=== PATIENT | female | born 1935 | race Caucasian/White ===

== ENCOUNTER 2017-10-04 09:47 | Emergency (ER) | payer MEDICARE, BC ==
[2017-10-04] MEDS ORDERED: Acetaminophen 325 MG Tab PO ONE (10:37)
[2017-10-04] MEDS ORDERED: Meclizine 12.5 MG Tab PO ONE (10:37)
[2017-10-04] MEDS ORDERED: Acetaminophen 325 MG Tab ONE (10:44)
--- NOTE | 2017-10-04 12:06 | EDM.PDOC ---
ED HPI GENERAL MEDICAL PROBLEM - General Chief Complaint: Back Pain or Injury Stated Complaint: BACK PAIN-FALL YESTERDAY Time Seen by Provider: 10/04/17 10:27 Source of Information: Reports: Patient, Family, RN Notes Reviewed - History of Present Illness INITIAL COMMENTS - FREE TEXT/NARRATIVE: 82-year-old female who's been brought in by family members after finding her having fallen on the sidewalk or on the ground just outside of her house. She has been developing worsening difficulty with her balance. She cannot really tell me what happened. She did have back pain right after her fall when found by one of her sons. Now here in the ED she does deny discomfort. However family states she is "stubborn" and will not admit she is having pain, does not want to be in hospital or assisted. Apparently her ability to care for herself is declining. She has had frequent falls. She is dizzy, unsteady on her feet. Family states that she have 2 Walker's but she refuses to use one. They state that she still drives her car but they do not feel that she is safe to drive. They have been urging her to leave the farmhouse and to get into some type of assisted living or assisted but she refuses to consider that. Lower Back Pain Score (Numeric/FACES): 2 - Related Data Allergies Allergy/AdvReac Type Severity Reaction Status Date / Time No Known Allergies Allergy Verified 10/04/17 10:02 Home Meds: Home Meds Levothyroxine [Synthroid] 50 mcg PO DAILY 10/04/17 [History] Losartan/Hydrochlorothiazide [Losartan-HCTZ 100-12.5 MG] 12.5 - 100 mg PO DAILY 10/04/17 [History] Past Medical History HEENT History: Reports: Impaired Vision Other HEENT History: wears eyeglasses. 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: Musculoskeletal History: Reports: Fracture Endocrine/Metabolic History: Reports: Hypothyroidism - Infectious Disease History Infectious Disease History: Reports: Chicken Pox, Measles Social & Family History - Tobacco Use Smoking Status *Q: Never Smoker Second Hand Smoke Exposure: No - Caffeine Use Caffeine Use: Reports: None - Recreational Drug Use Recreational Drug Use: No ED ROS GENERAL - Review of Systems Review Of Systems: See Below Constitutional: Denies: Fever, Chills HEENT: Denies: Ear Discharge, Throat Pain Respiratory: Denies: Shortness of Breath, Wheezing, Pleuritic Chest Pain Cardiovascular: Denies: Chest Pain GI/Abdominal: Denies: Abdominal Pain, Nausea, Vomiting Musculoskeletal: Reports: Back Pain (Now better). Denies: Neck Pain, Arm Pain, Leg Pain, Joint Pain Skin: Reports: No Symptoms Neurological: Reports: Dizziness (Patient admits to having difficulty with occasional vertigo,), Difficulty Walking. Denies: Headache, Numbness, Tingling , Trouble Speaking, Weakness, Change in Speech ED EXAM,LOWER BACK PAIN/INJURY - Physical Exam Exam: See Below General Appearance: Alert, No Apparent Distress Eye Exam: Bilateral Eye: PERRL Nose: Normal Inspection Throat/Mouth: Normal Inspection, Normal Oropharynx Head: Atraumatic. No: Facial Swelling Neck: Supple, Non-Tender Respiratory/Chest: No Respiratory Distress, Lungs Clear, Normal Breath Sounds, Chest Non-Tender Cardiovascular: Regular Rate, Rhythm GI/Abdominal: Soft, Non-Tender Back Exam: Normal Inspection, Full Range of Motion Extremities: Other (No visible deformity, mild discomfort with hip motion bilateral). No: Leg Pain Neurological: Alert, No Motor/Sensory Deficits Skin Exam: Warm, Dry, Normal Color Course - Vital Signs Last Recorded V/S: Last Vital Signs Temp 97.3 F 10/04/17 09:50 Pulse 70 10/04/17 09:50 Resp 16 10/04/17 09:50 BP 147/65 H 10/04/17 09:50 Pulse Ox 97 10/04/17 09:50 - Orders/Labs/Meds Orders: Active Orders 24 hr Category Date Time Status Lumbar Spine 2 or 3V [CR] Stat Exams 10/04/17 10:37 Taken Pelvis 1V or 2V [CR] Stat Exams 10/04/17 10:51 Taken Labs: Laboratory Tests 10/04/17 10/04/17 Range/Units 10:45 10:45 WBC 7.36 (3.98-10.04) K/mm3 RBC 4.48 (3.98-5.22) M/mm3 Hgb 13.9 (11.2-15.7) gm/L Hct 41.7 (34.1-44.9) % MCV 93.1 (79.4-94.8) fl MCH 31.0 (25.6-32.2) pg MCHC 33.3 (32.2-35.5) g/dl RDW Std Deviation 42.3 (36.4-46.3) fL Plt Count 256 (182-369) K/mm3 MPV 9.1 L (9.4-12.3) fl Neut % (Auto) 82.0 H (34.0-71.1) % Lymph % (Auto) 10.3 L (19.3-51.7) % [place] % (Auto) 6.1 (4.7-12.5) % Eos % (Auto) 1.1 (0.7-5.8) Baso % (Auto) 0.4 (0.1-1.2) % Neut # (Auto) 6.03 (1.56-6.13) K/mm3 Lymph # (Auto) 0.76 L (1.18-3.74) K/mm3 [place] # (Auto) 0.45 H (0.24-0.36) K/mm3 Eos # (Auto) 0.08 (0.04-0.36) K/mm3 Baso # (Auto) 0.03 (0.01-0.08) K/mm3 Sodium 134 L (136-145) mEq/L Potassium 3.4 L (3.5-5.1) mEq/L Chloride 100 (98-107) mEq/L Carbon Dioxide 28 (21-32) mEq/L Anion Gap 9.4 (5-15) BUN 11 (7-18) mg/dL Creatinine 0.6 (0.55-1.02) mg/dL Est Cr Clr Drug Dosing 60.27 mL/min Estimated GFR (MDRD) > 60 (>60) mL/min BUN/Creatinine Ratio 18.3 H (14-18) Glucose 106 (83-115) mg/dL Calcium 8.9 (8.5-10.1) mg/dL Total Bilirubin 0.5 (0.2-1.0) mg/dL AST 26 (15-37) U/L ALT 26 (14-59) U/L Alkaline Phosphatase 72 (46-116) U/L Total Protein 7.0 (6.4-8.2) g/dl Albumin 3.3 L (3.4-5.0) g/dl Globulin 3.7 gm/dL Albumin/Globulin Ratio 0.9 L (1-2) Meds: Medications Discontinued Medications Generic Name Dose Route Start Last Admin Trade Name Ida PRN Reason Stop Dose Admin Acetaminophen 975 mg 10/04/17 10:37 10/04/17 10:41 Tylenol PO 10/04/17 10:38 975 mg NOW ONE Administration Acetaminophen Confirm 10/04/17 10:44 10/04/17 10:46 Tylenol Administered 10/04/17 10:45 Not Given Dose 975 mg .ROUTE .STK-MED ONE Meclizine HCl 12.5 mg 10/04/17 10:37 10/04/17 10:41 Antivert PO 10/04/17 10:38 12.5 mg ONETIME ONE Administration - Re-Assessments/Exams Free Text/Narrative Re-Assessment/Exam: 10/04/17 13:06 Labs check this morning are normal, the lumbar spine and pelvis do not show visible fracture. Her nurse and I had discussed with family members the great concern for her safety. Or for we have filled out a form our [facility] licensed master social worker to review requesting home evaluation, safety check. Departure - Departure Time of Disposition: 12:03 Disposition: Home, Self-Care 01 Condition: Fair Clinical Impression: Fall Qualifiers: Encounter type: initial encounter Qualified Code(s): W19.XXXA - Unspecified fall, initial encounter Low back strain Qualifiers: Encounter type: initial encounter Qualified Code(s): S39.012A - Strain of muscle, fascia and tendon of lower back, initial encounter - Discharge Information Instructions: Fall Prevention in the Home, [id number], Back Pain, Adult, Easy -to-Read Referrals: Vargas Hassan MD [Primary Care Provider] - Forms: ED Department Discharge Additional Instructions: Use walker for assistance when walking, the next time you fall you could break a hip, arm or have other serious injury. Continue to drink plenty of water to maintain hydration. Tylenol 2-3 times daily if needed for discomfort. Follow- up with your regular medical provider as needed. Turn to ED if symptoms worsening in any way. A request has been filled out for a [facility] licensed master social worker to come out and assess your home and living situation for safety. - My Orders Last 24 Hours: My Active Orders 10/04/17 10:37 Lumbar Spine 2 or 3V [CR] Stat 10/04/17 10:51 Pelvis 1V or 2V [CR] Stat - Assessment/Plan Last 24 Hours: My Active Orders 10/04/17 10:37 Lumbar Spine 2 or 3V [CR] Stat 10/04/17 10:51 Pelvis 1V or 2V [CR] Stat
--- NOTE | 2017-10-05 07:42 | CR ---
Lumbar spine: AP, lateral and coned-down lateral views centered to the lumbosacral junction were obtained. Comparison: Previous lumbar spine x-ray of 07/19/09. Mild spondylolisthesis is noted at L3-L4 and L4-L5. These findings are similar to prior exam. Mild posterior disc space narrowing is noted at L3-L4 with moderate diffuse disc space narrowing noted at L4-L5. Disc space labeled as L5-S1 may be rudimentary and due to transitional segment. Other disc spaces are maintained. Minimal endplate concavity is seen within T11 which appears to be old. Minimal scattered endplate osteophytes are seen. Degenerative apophyseal change is seen within the lower lumbar spine. Pedicles as well as visualized transverse and spinous processes are intact. Impression: 1. Findings as noted above. No significant change from previous lumbar spine study is seen. Nothing acute is identified. Diagnostic code #2
--- NOTE | 2017-10-05 07:42 | CR ---
Pelvis: AP view of the pelvis was obtained. Comparison: Prior AP pelvis study of 07/19/09. Joint spaces within both hips are preserved. Sacroiliac joints appear within normal limits. Bony structures are osteopenic. Mild degenerative change is noted within the lower lumbar spine. Mild vascular calcification is noted. Nothing acute is appreciated. Impression: 1. Incidental findings. Nothing acute is identified on AP pelvis study. Diagnostic code #2
== END 2017-10-04 12:25 | disposition home or self-care (01) ==
LOC: JD.ED 09:47
DX: S39.012A Strain of muscle, fascia and tendon of lower back, initial encounter (principal); I10 Essential (primary) hypertension; E03.9 Hypothyroidism, unspecified; Z79.899 Other long term (current) drug therapy; W19.XXXA Unspecified fall, initial encounter
CPT/HCPCS: 36415; 72100; 72170; 80053; 85025; 99284; A9270

== ENCOUNTER 2018-01-16 05:51 | Emergency (ER) | payer MEDICARE, BC ==
--- NOTE | 2018-01-16 06:37 | EDM.PDOC ---
ED HPI GENERAL MEDICAL PROBLEM - General Chief Complaint: Head Injury Stated Complaint: FELL AT [place] HIT HER HEAD Time Seen by Provider: 01/16/18 06:32 Source of Information: Reports: Family History Limitations: Reports: No Limitations - History of Present Illness INITIAL COMMENTS - FREE TEXT/NARRATIVE: This is an 82-year-old female. She resides a local [facility] and apparently got up this morning to go to the bathroom and fell because she is very weak and she hit the back of her head. The family has come to be with her and they have carried on a good conversation with her and they feel like she is normal. She does have a history of Alzheimer's disease and she really doesn't add to the history but the family feels like she is doing well and does not need a CAT scan of her head. She does have a laceration to the back of her head that requires repair. His far as I'm aware there is no other injury to the patient according to the family. She normally walks with a walker and she is somewhat weak. - Related Data Allergies Allergy/AdvReac Type Severity Reaction Status Date / Time No Known Allergies Allergy Verified 10/04/17 10:02 Home Meds: Home Meds Levothyroxine [Synthroid] 50 mcg PO DAILY 10/04/17 [History] Losartan/Hydrochlorothiazide [Losartan-HCTZ 100-12.5 MG] 12.5 - 100 mg PO DAILY 10/04/17 [History] Past Medical History HEENT History: Reports: Impaired Vision Other HEENT History: wears eyeglasses. 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: Musculoskeletal History: Reports: Fracture Endocrine/Metabolic History: Reports: Hypothyroidism - Infectious Disease History Infectious Disease History: Reports: Chicken Pox, Measles Social & Family History - Caffeine Use Caffeine Use: Reports: None ED ROS GENERAL - Review of Systems Review Of Systems: See Below (The review of systems is from the family not the patient) Constitutional: Denies: Fever, Chills HEENT: Reports: No Symptoms Respiratory: Reports: No Symptoms Cardiovascular: Reports: No Symptoms GI/Abdominal: Denies: Abdominal Pain, Nausea, Vomiting Musculoskeletal: Reports: No Symptoms Skin: Reports: Other (As per history of present illness) Neurological: Reports: Confusion, Trouble Speaking, Difficulty Walking, Weakness Psychiatric: Reports: Other (Flat affect) ED EXAM, HEAD INJURY - Physical Exam Exam: See Below Exam Limited By: Other (Patient has Alzheimer's disease) General Appearance: Alert, No Apparent Distress, Thin Head: Other (Posterior scalp shows a 5 cm laceration that is jagged and stair stepped, the bleeding is controlled) Nexus Criteria: No: Posterior, Midline Cervical Tenderness Eyes: Bilateral Eye: Other (No facial trauma noted) Ears: Normal External Exam, Normal Canal, Normal TMs Nose: Normal Inspection Throat/Mouth: Normal Inspection, Normal Lips, Normal Voice, No Airway Compromise Neck: Normal Alignment, Normal Inspection, Other (Patient is noted to have a goiter) Respiratory: No Respiratory Distress, Lungs Clear, Normal Breath Sounds Cardiovascular: Regular Rate, Rhythm, No Murmur GI/Abdominal Exam: Soft Back Exam: Decreased Range of Motion Extremities: Normal Inspection, Other (Patient was able to be road tested and did bear full weight on her lower extremities) Neurologic: Alert, Other (Patient is noted to have generalized weakness and decreased mental function) Skin: Normal Color - [place] Coma Score Best Eye Response (Deep): (4) Open Spontaneously Best Verbal Response ([place]): (4) Confused Conversation (She has Alzheimer's) Best Motor Response ([place]): (6) Obeys Commands (She obeys simple commands) [place] Total: 14 ED LACERATION/WOUND & MARVA PROC - Laceration/Wound Repair Mid-Posterior Head Lac/wound length in cm: 5 Appearance: Subcutaneous, Irregular, Clean Distal NVT: Neuro & Vascular Intact Anesthetic Type: Digital Local Anesthesia - Lidocaine (Xylocaine): 1% Plain Local Anesthetic Volume: Other (8 CC) Skin Prep: Saline Exploration/Debridement/Repair: Wound Explored Closed with: [place] # of Sutures: 9 Drain Placement: No Sterile Dressing Applied: Nurse Tetanus Status Addressed: No Complications: No Course - Re-Assessments/Exams Free Text/Narrative Re-Assessment/Exam: 01/16/18 06:43 The family was with her and talking to her during the entire examination and the procedure to fix her scalp. I talked to them 3 times making sure the patient was acting normal and they indicate she is markedly normal. I indicated a possible need for a CAT scan of the head and they didn't feel that was necessary at this time. I did give them instructions that if her mental status changes or deteriorates in any need to bring her back to the ER for further evaluation and possible CAT scan. They understand. 01/16/18 06:[address] with her walker she was able to use it without difficulty did not seem to favor the leg or arm and use the walker as she normally does. Departure - Departure Time of Disposition: 06:41 Disposition: DC/Tfer to SNF 03 Condition: Fair Clinical Impression: Scalp laceration Qualifiers: Encounter type: initial encounter Qualified Code(s): S01.01XA - Laceration without foreign body of scalp, initial encounter Contusion of scalp Qualifiers: Encounter type: initial encounter Qualified Code(s): S00.03XA - Contusion of scalp, initial encounter - Discharge Information Referrals: Vargas Hassan MD [Primary Care Provider] - Forms: ED Department Discharge Additional Instructions: Watch for infection such as increased swelling redness or drainage, keep the pressure dressing on there for at least 12 hours then you may take it off and put her in a shower to wash her hair gently, staple removal in 7-10 days and there are 9 chang, follow-up with her physician in 7-10 days or sooner for recheck, if there is any change in her mental status other than her baseline that seems to be worsening return to the ER
== END 2018-01-16 06:56 ==
LOC: JD.ED 05:51
DX: S01.01XA Laceration without foreign body of scalp, initial encounter (principal); I10 Essential (primary) hypertension; E03.9 Hypothyroidism, unspecified; G30.9 Alzheimer's disease, unspecified; F02.80 Dementia in other diseases classified elsewhere, unspecified severity, without behavioral disturbance, psychotic disturbance, mood disturbance, and anxiety; Z79.899 Other long term (current) drug therapy; W19.XXXA Unspecified fall, initial encounter; Y92.121 Bathroom in nursing home as the place of occurrence of the external cause
CPT/HCPCS: 12002; 99283-25

== ENCOUNTER 2018-01-27 21:45 | Inpatient (IN) | payer MEDICARE, BC ==
--- NOTE | 2018-01-27 21:55 | EDM.PDOC ---
ED HPI GENERAL MEDICAL PROBLEM - General Chief Complaint: Head Injury Stated Complaint: FELL AND REOPENED A PREVIOUS HEAD WOUND Time Seen by Provider: 01/27/18 21:54 Source of Information: Reports: Patient, Family (Son & Daughter in law) - History of Present Illness INITIAL COMMENTS - FREE TEXT/NARRATIVE: Patient is here for evaluation of a head injury. She reportedly had 3 falls today, almost a 4th time but she was caught. On the third time she did hit the back of her head. She reopened a laceration where she just had the sutures removed yesterday for a fall that she sustained 11 days ago. She has been under some evaluation by her PCP for these frequent falls. It does not sound that the falls have been witnessed. Patient states that she feels dizzy at times, that the room is spinning. Review of systems is very limited due to patient's Alzheimer's. Family is in the room, states that her mental status is stable from where it has been over the past few weeks. Her Alzheimer has been progressing recently. Patient denies any chest pain or dyspnea. Denies any abdominal pain. Denies any dysuria, does have incontinence and wears attends daily. Patient states she does have lower back/sacral pain from where she landed earlier today. Recently had blood pressure medicine decreased by her PCP. Sertraline was also recently stopped. Patient is not a full code, she is DNR. - Related Data Allergies Allergy/AdvReac Type Severity Reaction Status Date / Time No Known Allergies Allergy Verified 01/27/18 21:58 Home Meds: Home Meds Levothyroxine [Synthroid] 50 mcg PO DAILY 10/04/17 [History] Losartan/Hydrochlorothiazide [Losartan-HCTZ 50-12.5 MG] 1 tab PO DAILY 01/28/18 [History] Past Medical History HEENT History: Reports: Impaired Vision Other HEENT History: wears eyeglasses. 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 Denies : Fever, Chills HEENT: Denies: Ear Pain, Rhinitis, Sinus Problem, Vision Change Respiratory: Reports: No Symptoms Cardiovascular: Reports: Chest Pain, Blood Pressure Problem, Syncope (Possible?) . Denies: Orthopnea Endocrine: Reports: Fatigue GI/Abdominal: Reports: No Symptoms : Reports: Incontinence (Chronic). Denies: Discharge, Dysuria, Flank Pain, Frequency Musculoskeletal: Reports: Back Pain (Lower back/buttucks). Denies: Neck Pain Skin: Reports: Wound (Left scalp) Neurological: Reports: Confusion, Dizziness, Syncope, Difficulty Walking, Gait Disturbance. Denies: Headache, Numbness, Tingling Psychiatric: Reports: Anxiety ED EXAM, HEAD INJURY - Physical Exam Exam: See Below Exam Limited By: Other (Memory impairment) General Appearance: Alert, WD/WN, No Apparent Distress Head: Normocephalic, Scalp Lacerations, Active Bleeding Eyes: Bilateral Eye: PERRL Ears: Hearing Loss (Bilateral hearing aids) Throat/Mouth: Normal Inspection, Normal Oropharynx Neck: Non-Tender, Full Range of Motion, Other (Left-sided goiter) Respiratory: No Respiratory Distress, Lungs Clear, Normal Breath Sounds Cardiovascular: Regular Rate, Rhythm, Systolic Murmur (I/) GI/Abdominal Exam: Normal Bowel Sounds, Soft, Non-Tender Extremities: Normal Inspection Neurologic: No Motor/Sensory Deficits, Other (Flat affect, oriented to person) Skin: Normal Color, Warm/Dry, Other (2 cm laceration to left posterior scalp.) - Randolph Coma Score Best Eye Response (Deep): (4) Open Spontaneously Best Verbal Response (Deep): (4) Confused Conversation (Due to dementia) Best Motor Response (Deep): (6) Obeys Commands Deep Total: 14 EKG INTERPRETATION EKG Date: 01/27/18 Rhythm: NSR Rate (Beats/Min): 68 QT: Prolonged EKG Interpretation Comments: Mild ST elevation, widened QRS. Reviewed with Dr Do Course - Vital Signs Last Recorded V/S: Last Vital Signs Temp 99.1 F 01/28/18 03:55 Pulse 89 01/28/18 07:31 Resp 16 01/28/18 03:55 BP 157/66 H 01/28/18 07:31 Pulse Ox 98 01/28/18 07:31 Orthostatic Blood Pressure [ 186/68 Standing] Orthostatic Blood Pressure [ 184/70 Sitting] Orthostatic Blood Pressure [ 184/62 Supine] - Orders/Labs/Meds Orders: Active Orders 24 hr Category Date Time Status Orthostatic Vital Signs [RC] ASDIRECTED Care 01/27/18 22:14 Active Lumbar Spine 2 or 3V [CR] Stat Exams 01/28/18 08:50 Ordered CULTURE URINE [RM] Stat Lab 01/27/18 22:55 Results Medication Orders Acetaminophen (Tylenol) 650 mg PO Q4H PRN PRN Reason: Pain/Fever Bisacodyl (Dulcolax) 5 mg PO DAILY PRN PRN Reason: Constipation Docusate Sodium (Colace) 100 mg PO BID PRN PRN Reason: Constipation Famotidine (Pepcid) 20 mg IVPUSH BID KARRIE Hydralazine HCl (Apresoline) 20 mg IVPUSH Q6HR PRN PRN Reason: Hypertension Last Admin: 01/28/18 01:40 Dose: 20 mg Hydromorphone HCl (Dilaudid) 0.25 mg IVPUSH Q2H PRN PRN Reason: Pain (severe 7-10) Sodium Chloride (Sodium Chloride 0.45%) 1,000 mls @ 75 mls/hr IV ASDIRECTED [facility] Last Admin: 01/28/18 01:39 Dose: 75 mls/hr Promethazine HCl 6.25 mg/ (Sodium Chloride) 50.25 mls @ 100 mls/hr IV Q6H PRN PRN Reason: Nausea/Vomiting Ceftriaxone Sodium 1 gm/ (Sodium Chloride) 100 mls @ 200 mls/hr IV DAILY [facility] Potassium Chloride 10 meq/ (Premix) 100 mls @ 100 mls/hr IV Q1H [facility] Stop: 01/28/18 13:14 Magnesium Hydroxide (Milk Of Magnesia) 30 ml PO Q12H PRN PRN Reason: Constipation Oxycodone/Acetaminophen (Percocet 325-5 Mg) 0.5 tab PO Q4H PRN PRN Reason: Pain (moderate 4-6) Polyethylene Glycol (Miralax) 17 gm PO DAILY PRN PRN Reason: Constipation Promethazine HCl (Phenergan) 25 mg PO Q6H PRN PRN Reason: Nausea/Vomiting Senna/Docusate Sodium (Senna Plus) 1 tab PO BID PRN PRN Reason: Constipation Sodium Chloride (Saline Flush) 10 ml FLUSH ASDIRECTED PRN PRN Reason: Keep Vein Open Last Admin: 01/28/18 00:15 Dose: 10 ml Temazepam (Restoril) 7.5 mg PO BEDTIME PRN PRN Reason: Insomnia Labs: Laboratory Tests 01/27/18 01/27/18 01/27/18 Range/Units 22:30 22:30 22:55 WBC 6.58 (3.98-10.04) K/mm3 RBC 3.41 L (3.98-5.22) M/mm3 Hgb 10.5 L (11.2-15.7) gm/L Hct 31.3 L (34.1-44.9) % MCV 91.8 (79.4-94.8) fl MCH 30.8 (25.6-32.2) pg MCHC 33.5 (32.2-35.5) g/dl RDW Std Deviation 42.4 (36.4-46.3) fL Plt Count 277 (182-369) K/mm3 MPV 8.6 L (9.4-12.3) fl Neutrophils % (Manual) 77 H (40-60) % Band Neutrophils % 0 (0-10) % Lymphocytes % (Manual) 17 L (20-40) % Atypical Lymphs % 0 % Monocytes % (Manual) 4 (2-10) % Eosinophils % (Manual) 1 (0.7-5.8) % Basophils % (Manual) 1 (0.1-1.2) Platelet Estimate Adequate Plt Morphology Comment Normal RBC Morph Comment Normal Sodium 130 L (136-145) mEq/L Potassium 3.1 L (3.5-5.1) mEq/L Chloride 95 L (98-107) mEq/L Carbon Dioxide 25 (21-32) mEq/L Anion Gap 13.1 (5-15) BUN 10 (7-18) mg/dL Creatinine 0.6 (0.55-1.02) mg/dL Est Cr Clr Drug Dosing 60.27 mL/min Estimated GFR (MDRD) > 60 (>60) mL/min BUN/Creatinine Ratio 16.7 (14-18) Glucose 110 (83-115) mg/dL Calcium 8.9 (8.5-10.1) mg/dL Total Bilirubin 0.6 (0.2-1.0) mg/dL AST 22 (15-37) U/L ALT 21 (14-59) U/L Alkaline Phosphatase 77 (46-116) U/L Troponin I < 0.017 (0.00-0.056) ng/mL C-Reactive Protein < 0.2 (<1.0) mg/dL Total Protein 6.5 (6.4-8.2) g/dl Albumin 3.4 (3.4-5.0) g/dl Globulin 3.1 gm/dL Albumin/Globulin Ratio 1.1 (1-2) TSH 3rd Generation 2.373 (0.358-3.74) uIU/mL Urine Color Yellow (Yellow) Urine Appearance Slt cloudy H (Clear) Urine pH 6.5 (5.0-8.0) Ur Specific [place] 1.020 (1.005-1.030) Urine Protein Negative (Negative) Urine Glucose (UA) Negative (Negative) Urine Ketones Negative (Negative) Urine Occult Blood Negative (Negative) Urine Nitrite Positive H (Negative) Urine Bilirubin Negative (Negative) Urine Urobilinogen 0.2 (0.2-1.0) Ur Leukocyte Esterase Trace H (Negative) Urine RBC Not seen (0-5) /hpf Urine WBC 5-10 H (0-5) /hpf Urine WBC Clumps Few (NOT SEEN) /hpf Ur Epithelial Cells 0-5 (0-5) /hpf Urine Bacteria Many H (FEW) /hpf Urine Mucus Few (FEW) /hpf Meds: Medications Generic Name Dose Route Start Last Admin Trade Name Freq PRN Reason Stop Dose Admin Acetaminophen 650 mg 01/28/18 01:27 Tylenol PO Q4H PRN Pain/Fever Bisacodyl 5 mg 01/28/18 08:38 Dulcolax PO DAILY PRN Constipation Docusate Sodium 100 mg 01/28/18 08:38 Colace PO BID PRN Constipation Famotidine 20 mg 01/28/18 09:00 Pepcid IVPUSH BID KARRIE Hydralazine HCl 20 mg 01/28/18 01:23 01/28/18 01:40 Apresoline IVPUSH 20 mg Q6HR PRN Administration Hypertension Hydromorphone HCl 0.25 mg 01/28/18 08:38 Dilaudid IVPUSH Q2H PRN Pain (severe 7-10) Sodium Chloride 1,000 mls @ 75 mls/hr 01/28/18 01:30 01/28/18 01:39 Sodium Chloride 0.45% IV 75 mls/hr ASDIRECTED KARRIE Administration Promethazine HCl 6.25 mg/ 50.25 mls @ 100 mls/hr 01/28/18 08:38 Sodium Chloride IV Q6H PRN Nausea/Vomiting Ceftriaxone Sodium 1 gm/ 100 mls @ 200 mls/hr 01/28/18 09:00 Sodium Chloride IV DAILY KARRIE Potassium Chloride 10 meq/ 100 mls @ 100 mls/hr 01/28/18 09:15 Premix IV 01/28/18 13:14 Q1H KARRIE Magnesium Hydroxide 30 ml 01/28/18 08:38 Milk Of Magnesia PO Q12H PRN Constipation Oxycodone/Acetaminophen 0.5 tab 01/28/18 08:38 Percocet 325-5 Mg PO Q4H PRN Pain (moderate 4-6) Polyethylene Glycol 17 gm 01/28/18 08:38 Miralax PO DAILY PRN Constipation Promethazine HCl 25 mg 01/28/18 08:38 Phenergan PO Q6H PRN Nausea/Vomiting Senna/Docusate Sodium 1 tab 01/28/18 08:38 Senna Plus PO BID PRN Constipation Sodium Chloride 10 ml 01/28/18 00:02 01/28/18 00:15 Saline Flush FLUSH 10 ml ASDIRECTED PRN Administration Keep Vein Open Temazepam 7.5 mg 01/28/18 01:27 Restoril PO BEDTIME PRN Insomnia Discontinued Medications Generic Name Dose Route Start Last Admin Trade Name Freq PRN Reason Stop Dose Admin Acetaminophen 650 mg 01/28/18 08:38 Tylenol PO Q4H PRN Pain (Mild 1-3)/fever Ceftriaxone Sodium 1 gm 01/28/18 08:45 Rocephin IVPUSH 01/28/18 08:46 ONETIME ONE Ceftriaxone Sodium 1 gm/ 100 mls @ 200 mls/hr 01/28/18 09:00 Sodium Chloride IV DAILY KARRIE Lidocaine/Epinephrine 20 ml 01/27/18 23:00 01/27/18 23:09 Xylocaine 1% With Epinephrine 1:100,000 INJECT 01/27/18 23:01 20 ml ONETIME ONE Administration - Re-Assessments/Exams Free Text/Narrative Re-Assessment/Exam: Review of systems and neurologic exam very limited due to patient's dementia. Patient's family states her dementia has progressed, but her behavior and speech this evening is typical for her. With increased frequency and falls, patient's family requesting more thorough workup tonight (had been their choice to decline at last visit, have been working with PCP as well). Will get lab work, EKG, head CT. Urinalysis by catheter. It has been 12 days since patient's initial laceration to her scalp, however with re-injury today I do feel that this needs to be repaired. 01/27/18 22:29 Attempted to staple head laceration, however with the hematoma the skin is just too soft for this. Pressure dressing will be applied and this will have to heal on its own. Wound was examined by Dr Do as well who agrees with plan. 01/27/18 23:51 Patient has had some lower back/sacrum pain since her fall. X-ray of this has been ordered. This may end up being performed once patient is admitted as there are other situations currently in the department requiring radiology services. Head CT demonstrates 1.8 cm right frontoparietal extra-axial fluid collection of CSF likely consistent with a subdural hygroma. No other intracranial processes appreciated. She does have a left occipital cephalehematoma. Discussed possible consult with neurology/neurosurgery for this with patient's son and [id number], I see that she would not want this. They have no desire to treat this invasively and would not consider surgery or possible shunt. May consider outpatient consult the future but they do not want to do this right now. Patient has white blood cell count of 6,580, hemoglobin is 10.5 which is reportedly higher than it has been. Sodium is decreased at 130 and potassium is low at 3.1. She is on HCTZ, also her sertraline was just stopped and could have been contributing. CRP <0.2. Urinalysis demonstrates nitrates with a trace of leukocyte esterase. Do not feel that this is treatable infection, culture is pending. orthostatic blood pressures are unremarkable. Blood pressure remains elevated, however prior to decreasing her medication was significantly lower and this was suspected to be contributing to her falls. Her blood pressure this morning on her decreased dose of medication was 128/66. -Difficult to clarify with memory care facility on what her previous dosing was , current dosing of medication is losartan/hydrochlorothiazide 50 mg/12.5 mg daily. Will not currently treat patient with hypertension, discussed with hospitalist and she will monitor. Patient's case was discussed with the hospitalist. Will admit patient for head injury, altered mental status and memory loss, hypokalemia, hyponatremia and frequent falls. She will likely need social work consult and possible admission to group home and said of the [facility] care facility in which she resides. Patient is DNR/DNI. 01/27/18 23:52 Received clarification of medications from patient's memory care facility. Her meclizine and sertraline were stopped approximately 10 days ago. Losartan/ hydrochlorothiazide 100/12.5 mg daily was decreased to 50\12.5 mg daily. 01/28/18 00:06 Departure - Departure Time of Disposition: 00:05 Disposition: Admitted As Inpatient 64 Condition: Fair Clinical Impression: Laceration of head, Frequent falls, Hyponatremia, Hypokalemia Altered mental status Qualifiers: Altered mental status type: unspecified Qualified Code(s): R41.82 - Altered mental status, unspecified Dementia Qualifiers: Dementia type: Alzheimer's disease Alzheimer's disease onset: unspecified onset Dementia behavioral disturbance: without behavioral disturbance Qualified Code(s): G30.9 - Alzheimer's disease, unspecified Hypertension Qualifiers: Hypertension type: essential hypertension Qualified Code(s): I10 - Essential ( primary) hypertension Scalp laceration Qualifiers: Encounter type: initial encounter Qualified Code(s): S01.01XA - Laceration without foreign body of scalp, initial encounter - Discharge Information - My Orders Last 24 Hours: My Active Orders 01/27/18 22:14 Orthostatic Vital Signs [RC] ASDIRECTED 01/27/18 22:55 CULTURE URINE [RM] Stat 01/28/18 08:50 Lumbar Spine 2 or 3V [CR] Stat - Assessment/Plan Last 24 Hours: My Active Orders 01/27/18 22:14 Orthostatic Vital Signs [RC] ASDIRECTED 01/27/18 22:55 CULTURE URINE [RM] Stat 01/28/18 08:50 Lumbar Spine 2 or 3V [CR] Stat
[2018-01-27] MEDS ORDERED: Lidocaine 1% with EPINEPHrine 1:100,000 20 ML MDV INJECT ONE (23:00)
[2018-01-28] MEDS: Sodium Chloride 0.9% 10 ML Syringe FLUSH PRN (00:15)
[2018-01-28] MEDS ORDERED: Temazepam 7.5 MG Cap PO PRN (01:27)
[2018-01-28] MEDS: Sodium Chloride 0.45% 1,000 ML IV SCH ×2 (01:39→15:11)
[2018-01-28] MEDS: hydrALAZINE 20 MG/ML SDV IVPUSH PRN (01:40)
--- NOTE | 2018-01-28 06:56 | CT ---
Head CT Technique: Multiple axial sections through the brain were obtained. Intravenous contrast was not utilized. Comparison: No prior head CT exam, previous MRI brain dated 01/15/10. Findings: Ventricles along with basal cisterns and sulci over the convexities are mildly prominent. Increased extra-axial space is identified on the right side which is felt compatible with old subdural hygroma. Diminished density is noted within the periventricular and subcortical white matter compatible with small vessel ischemic demyelination change. No evidence of intracranial hemorrhage. Slight midline shift by about 3.6 mm is seen secondary to the chronic right subdural hygroma. Bone window settings were reviewed which show no acute calvarial abnormality. Large hematoma is seen within the left scalp. Impression: 1. Large scalp hematoma on the left side. 2. Chronic subdural hygroma on the right side causing mild midline shift of about 3.6 mm. 3. Other senescent change as noted above. No acute intracranial abnormality is seen. Diagnostic code #3 Agree with preliminary report issued by [facility] ([facility] preliminary report dictated on 01/27/18, 11:57 PM Central Time)
[2018-01-28] MEDS ORDERED: Acetaminophen/oxyCODONE 325-5 MG Tab PO PRN (08:38)
[2018-01-28] MEDS ORDERED: Promethazine 6.25 MG in Sodium Chloride 0.9% 50 ML IV PRN (08:38)
[2018-01-28] MEDS ORDERED: Bisacodyl 5 MG Tab PO PRN (08:38)
[2018-01-28] MEDS ORDERED: HYDROmorphone 0.5 MG/0.5 ML SYRINGE IVPUSH PRN (08:38)
[2018-01-28] MEDS ORDERED: Promethazine 25 MG Tab PO PRN (08:38)
[2018-01-28] MEDS ORDERED: Docusate Sodium 100 MG Cap PO PRN (08:38)
[2018-01-28] MEDS ORDERED: Acetaminophen 325 MG Tab PO PRN (08:38)
[2018-01-28] MEDS ORDERED: Magnesium Hydroxide 400 MG/5 ML Susp 30 ML Cup PO PRN (08:38)
[2018-01-28] MEDS ORDERED: Polyethylene Glycol 3350 Powder 17 GM Packet PO PRN (08:38)
[2018-01-28] MEDS ORDERED: cefTRIAXone 2 GM Vial IVPUSH ONE (08:45)
[2018-01-28] MEDS ORDERED: cefTRIAXone 1 GM in Sodium Chloride 0.9% 100 ML IV SCH ×4 (09:00)
[2018-01-28] MEDS ORDERED: Famotidine 20 MG/2 ML SDV IVPUSH SCH (09:00)
--- NOTE | 2018-01-28 09:34 | PCM.HP ---
<Delisa Phillips - Last Filed: 01/28/18 14:10> H&P History of Present Illness - General Date of Service: 01/28/18 Admit Problem/Dx: Admission Diagnosis/Problem Admission Diagnosis/Problem Falls Source of Information: Family, Old Records, Provider History Limitations: Reports: Altered Mental Status (h/o dementia) - History of Present Illness Initial Comments - Free Text/Narative: This is a 82 yo female with past medical hx/o HTN, hyperthyroid, Alzheimer's, h/ o fall 11 days ago with laceration repair who comes in for head injury with re- opening of previous laceration with fall. She currently has pain in her lower back/buttocks area after the fall. Difficult to get history due to Alzheimer's, but she complains of chest pain, weakness, fatigue, difficulty walking, decreased appetite, incontinence. She reports no fever, chills, headache, nausea , vomiting, diarrhea, shortness of breath, or other GI/ complaints. Her initial workup in the ED showed a CBC remarkable for RBC 3.41, Hgb 10.5, Hct 31.3. Her chemistry is remarkable for Na 130, K 3.1, Cl 95. UA is impressive for UTI. EKG showed mild ST elevation, prolonged QRS. Head CT demonstrates 1.8 cm right frontoparietal extra-axial fluid collection of CSF likely consistent with a subdural hygroma and left occipital cephalehematoma. She is subsequently admitted to the medical floor. She is a DNR/DNI. Her PCP is Dr. Vargas Hassan. - Related Data Allergies/Adverse Reactions: Allergies Allergy/AdvReac Type Severity Reaction Status Date / Time No Known Allergies Allergy Verified 01/27/18 21:58 Home Medications: Home Meds Levothyroxine [Synthroid] 50 mcg PO DAILY 10/04/17 [History] Calcium Carbonate 600 mg PO BIDMEALS 01/28/18 [History] Losartan/Hydrochlorothiazide [Losartan-HCTZ 50-12.5 MG] 1 tab PO DAILY 01/28/18 [History] Naproxen Sodium 220 mg PO Q12H PRN 01/28/18 [History] Past Medical History HEENT History: Reports: Hard of Hearing, Impaired Vision Other HEENT History: wears eyeglasses. 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: Musculoskeletal History: Reports: Fracture Neurological History: Reports: Vertigo, Other (See Below) Other Neuro History: dementia Psychiatric History: Reports: Dementia, Depression Endocrine/Metabolic History: Reports: Hypothyroidism Dermatologic History: Reports: Other (See Below) Other Dermatologic History: allergic reactions to different soaps, dermatitis - Infectious Disease History Infectious Disease History: Reports: None - Past Surgical History HEENT Surgical History: Reports: None Cardiovascular Surgical History: Reports: None Endocrine Surgical History: Reports: None Neurological Surgical History: Reports: None Musculoskeletal Surgical History: Reports: Other (See Below) Other Musculoskeletal Surgeries/Procedures:: wrist fracture left with cast placement x3 Social & Family History - Family History Family Medical History: Noncontributory - Tobacco Use Smoking Status *Q: Never Smoker Second Hand Smoke Exposure: No - Caffeine Use Caffeine Use: Reports: None - Recreational Drug Use Recreational Drug Use: No H&P Review of Systems - Review of Systems: Review Of Systems: See Below General: Reports: Malaise, Weakness, Fatigue, Decreased Appetite. Denies: Fever , Chills HEENT: Reports: No Symptoms Pulmonary: Reports: No Symptoms Cardiovascular: Reports: Chest Pain, Syncope (possible), Blood Pressure Problem. Denies: Dyspnea on Exertion, Orthopnea, Edema Gastrointestinal: Reports: No Symptoms Genitourinary: Reports: Incontinence. Denies: Dysuria, Frequency, Burning, Pain Musculoskeletal: Reports: Back Pain (Lower back/buttucks). Denies: Neck Pain Skin: Reports: Wound (Left scalp) Psychiatric: Reports: Confusion Neurological: Reports: Confusion, Dizziness, Syncope, Difficulty Walking, Gait Disturbance. Denies: Headache, Numbness, Tingling Hematologic/Lymphatic: Reports: No Symptoms. Denies: Anemia Immunologic: Reports: No Symptoms Exam - Exam Exam: See Below - Vital Signs Vital Signs: Last Vital Signs Temp 99.1 F 01/28/18 03:55 Pulse 89 01/28/18 07:31 Resp 16 01/28/18 03:55 BP 157/66 H 01/28/18 07:31 Pulse Ox 98 01/28/18 07:31 Orthostatic Blood Pressure [ 186/68 Standing] Orthostatic Blood Pressure [ 184/70 Sitting] Orthostatic Blood Pressure [ 184/62 Supine] Weight: 56.926 kg - Exam Quality Assessment: DVT Prophylaxis. No: Urinary Catheter General: Alert, Oriented (oriented to person only), Cooperative, Mild Distress HEENT: PERRLA, Hearing Intact, Mucosa Moist & [place], Nares Patent, Normal Nasal Septum, Posterior Pharynx Clear, Conjunctiva Clear, EOMI, EACs Clear, TMs Clear Neck: Supple, Trachea Midline, Full Range of Motion, Other (Left-sided goiter) Lungs: Clear to Auscultation, Normal Respiratory Effort Cardiovascular: Regular Rate, Regular Rhythm, Systolic Murmur (I/) GI/Abdominal Exam: Normal Bowel Sounds, Soft, Non-Tender, No Organomegaly, No Distention, No Abnormal Bruit, No Mass, Pelvis Stable (Female) Exam: Deferred Rectal (Female) Exam: Deferred Back Exam: Normal Inspection, Decreased Range of Motion, Other (TTP Lower back/ buttucks area) Extremities: Normal Inspection, Normal Range of Motion, Non-Tender, No Pedal Edema, Normal Capillary Refill Peripheral Pulses: 1+: Posterior Tibial (L), Posterior Tibial (R), Dorsalis Pedis (L), Dorsalis Pedis (R) Skin: Warm, Dry, Intact, Wound (2 cm laceration to left posterior scalp) Neurological: Cranial Nerves Intact (grossly), Abnormal Gait Neuro Extensive - Mental Status: Alert, Disorientation to Place, Disorientation to Time, Other (Flat affect, oriented to person) Psychiatric: Alert, Other (Flat affect) - Patient Data Lab Results Last 24 hrs: Laboratory Results - last 24 hr 01/27/18 01/27/18 01/27/18 Range/Units 22:30 22:30 22:55 WBC 6.58 (3.98-10.04) K/mm3 RBC 3.41 L (3.98-5.22) M/mm3 Hgb 10.5 L (11.2-15.7) gm/L Hct 31.3 L (34.1-44.9) % MCV 91.8 (79.4-94.8) fl MCH 30.8 (25.6-32.2) pg MCHC 33.5 (32.2-35.5) g/dl RDW Std Deviation 42.4 (36.4-46.3) fL Plt Count 277 (182-369) K/mm3 MPV 8.6 L (9.4-12.3) fl Neut % (Auto) (34.0-71.1) % Lymph % (Auto) (19.3-51.7) % [place] % (Auto) (4.7-12.5) % Eos % (Auto) (0.7-5.8) Baso % (Auto) (0.1-1.2) % Neut # (Auto) (1.56-6.13) K/mm3 Lymph # (Auto) (1.18-3.74) K/mm3 [place] # (Auto) (0.24-0.36) K/mm3 Eos # (Auto) (0.04-0.36) K/mm3 Baso # (Auto) (0.01-0.08) K/mm3 Neutrophils % (Manual) 77 H (40-60) % Band Neutrophils % 0 (0-10) % Lymphocytes % (Manual) 17 L (20-40) % Atypical Lymphs % 0 % Monocytes % (Manual) 4 (2-10) % Eosinophils % (Manual) 1 (0.7-5.8) % Basophils % (Manual) 1 (0.1-1.2) Platelet Estimate Adequate Plt Morphology Comment Normal RBC Morph Comment Normal Sodium 130 L (136-145) mEq/L Potassium 3.1 L (3.5-5.1) mEq/L Chloride 95 L (98-107) mEq/L Carbon Dioxide 25 (21-32) mEq/L Anion Gap 13.1 (5-15) BUN 10 (7-18) mg/dL Creatinine 0.6 (0.55-1.02) mg/dL Est Cr Clr Drug Dosing 60.27 mL/min Estimated GFR (MDRD) > 60 (>60) mL/min BUN/Creatinine Ratio 16.7 (14-18) Glucose 110 (83-115) mg/dL Calcium 8.9 (8.5-10.1) mg/dL Magnesium (1.8-2.4) mg/dl Total Bilirubin 0.6 (0.2-1.0) mg/dL AST 22 (15-37) U/L ALT 21 (14-59) U/L Alkaline Phosphatase 77 (46-116) U/L Troponin I < 0.017 (0.00-0.056) ng/mL C-Reactive Protein < 0.2 (<1.0) mg/dL NT-Pro-B Natriuret Pep (0-450) pg/mL Total Protein 6.5 (6.4-8.2) g/dl Albumin 3.4 (3.4-5.0) g/dl Globulin 3.1 gm/dL Albumin/Globulin Ratio 1.1 (1-2) TSH 3rd Generation 2.373 (0.358-3.74) uIU/mL Urine Color Yellow (Yellow) Urine Appearance Slt cloudy H (Clear) Urine pH 6.5 (5.0-8.0) Ur Specific [place] 1.020 (1.005-1.030) Urine Protein Negative (Negative) Urine Glucose (UA) Negative (Negative) Urine Ketones Negative (Negative) Urine Occult Blood Negative (Negative) Urine Nitrite Positive H (Negative) Urine Bilirubin Negative (Negative) Urine Urobilinogen 0.2 (0.2-1.0) Ur Leukocyte Esterase Trace H (Negative) Urine RBC Not seen (0-5) /hpf Urine WBC 5-10 H (0-5) /hpf Urine WBC Clumps Few (NOT SEEN) /hpf Ur Epithelial Cells 0-5 (0-5) /hpf Urine Bacteria Many H (FEW) /hpf Urine Mucus Few (FEW) /hpf MRSA (PCR) 01/28/18 01/28/18 01/28/18 Range/Units 01:48 06:15 06:15 WBC (3.98-10.04) K/mm3 RBC (3.98-5.22) M/mm3 Hgb (11.2-15.7) gm/L Hct (34.1-44.9) % MCV (79.4-94.8) fl MCH (25.6-32.2) pg MCHC (32.2-35.5) g/dl RDW Std Deviation (36.4-46.3) fL Plt Count (182-369) K/mm3 MPV (9.4-12.3) fl Neut % (Auto) (34.0-71.1) % Lymph % (Auto) (19.3-51.7) % [place] % (Auto) (4.7-12.5) % Eos % (Auto) (0.7-5.8) Baso % (Auto) (0.1-1.2) % Neut # (Auto) (1.56-6.13) K/mm3 Lymph # (Auto) (1.18-3.74) K/mm3 [place] # (Auto) (0.24-0.36) K/mm3 Eos # (Auto) (0.04-0.36) K/mm3 Baso # (Auto) (0.01-0.08) K/mm3 Neutrophils % (Manual) (40-60) % Band Neutrophils % (0-10) % Lymphocytes % (Manual) (20-40) % Atypical Lymphs % % Monocytes % (Manual) (2-10) % Eosinophils % (Manual) (0.7-5.8) % Basophils % (Manual) (0.1-1.2) Platelet Estimate Plt Morphology Comment RBC Morph Comment Sodium 130 L (136-145) mEq/L Potassium 3.2 L (3.5-5.1) mEq/L Chloride 95 L (98-107) mEq/L Carbon Dioxide 25 (21-32) mEq/L Anion Gap 13.2 (5-15) BUN 7 (7-18) mg/dL Creatinine 0.6 (0.55-1.02) mg/dL Est Cr Clr Drug Dosing 60.27 mL/min Estimated GFR (MDRD) > 60 (>60) mL/min BUN/Creatinine Ratio 11.7 L (14-18) Glucose 110 (83-115) mg/dL Calcium 8.8 (8.5-10.1) mg/dL Magnesium 2.0 (1.8-2.4) mg/dl Total Bilirubin (0.2-1.0) mg/dL AST (15-37) U/L ALT (14-59) U/L Alkaline Phosphatase (46-116) U/L Troponin I 0.036 (0.00-0.056) ng/mL C-Reactive Protein (<1.0) mg/dL NT-Pro-B Natriuret Pep 1247 H (0-450) pg/mL Total Protein (6.4-8.2) g/dl Albumin (3.4-5.0) g/dl Globulin gm/dL Albumin/Globulin Ratio (1-2) TSH 3rd Generation (0.358-3.74) uIU/mL Urine Color (Yellow) Urine Appearance (Clear) Urine pH (5.0-8.0) Ur Specific [place] (1.005-1.030) Urine Protein (Negative) Urine Glucose (UA) (Negative) Urine Ketones (Negative) Urine Occult Blood (Negative) Urine Nitrite (Negative) Urine Bilirubin (Negative) Urine Urobilinogen (0.2-1.0) Ur Leukocyte Esterase (Negative) Urine RBC (0-5) /hpf Urine WBC (0-5) /hpf Urine WBC Clumps (NOT SEEN) /hpf Ur Epithelial Cells (0-5) /hpf Urine Bacteria (FEW) /hpf Urine Mucus (FEW) /hpf MRSA (PCR) Negative 01/28/18 Range/Units 06:15 WBC 7.00 (3.98-10.04) K/mm3 RBC 3.84 L (3.98-5.22) M/mm3 Hgb 11.7 (11.2-15.7) gm/L Hct 34.8 (34.1-44.9) % MCV 90.6 (79.4-94.8) fl MCH 30.5 (25.6-32.2) pg MCHC 33.6 (32.2-35.5) g/dl RDW Std Deviation 43.1 (36.4-46.3) fL Plt Count 320 (182-369) K/mm3 MPV 8.7 L (9.4-12.3) fl Neut % (Auto) 72.1 H (34.0-71.1) % Lymph % (Auto) 16.3 L (19.3-51.7) % [place] % (Auto) 9.6 (4.7-12.5) % Eos % (Auto) 1.3 (0.7-5.8) Baso % (Auto) 0.6 (0.1-1.2) % Neut # (Auto) 5.05 (1.56-6.13) K/mm3 Lymph # (Auto) 1.14 L (1.18-3.74) K/mm3 [place] # (Auto) 0.67 H (0.24-0.36) K/mm3 Eos # (Auto) 0.09 (0.04-0.36) K/mm3 Baso # (Auto) 0.04 (0.01-0.08) K/mm3 Neutrophils % (Manual) (40-60) % Band Neutrophils % (0-10) % Lymphocytes % (Manual) (20-40) % Atypical Lymphs % % Monocytes % (Manual) (2-10) % Eosinophils % (Manual) (0.7-5.8) % Basophils % (Manual) (0.1-1.2) Platelet Estimate Plt Morphology Comment RBC Morph Comment Sodium (136-145) mEq/L Potassium (3.5-5.1) mEq/L Chloride (98-107) mEq/L Carbon Dioxide (21-32) mEq/L Anion Gap (5-15) BUN (7-18) mg/dL Creatinine (0.55-1.02) mg/dL Est Cr Clr Drug Dosing mL/min Estimated GFR (MDRD) (>60) mL/min BUN/Creatinine Ratio (14-18) Glucose (83-115) mg/dL Calcium (8.5-10.1) mg/dL Magnesium (1.8-2.4) mg/dl Total Bilirubin (0.2-1.0) mg/dL AST (15-37) U/L ALT (14-59) U/L Alkaline Phosphatase (46-116) U/L Troponin I (0.00-0.056) ng/mL C-Reactive Protein (<1.0) mg/dL NT-Pro-B Natriuret Pep (0-450) pg/mL Total Protein (6.4-8.2) g/dl Albumin (3.4-5.0) g/dl Globulin gm/dL Albumin/Globulin Ratio (1-2) TSH 3rd Generation (0.358-3.74) uIU/mL Urine Color (Yellow) Urine Appearance (Clear) Urine pH (5.0-8.0) Ur Specific [place] (1.005-1.030) Urine Protein (Negative) Urine Glucose (UA) (Negative) Urine Ketones (Negative) Urine Occult Blood (Negative) Urine Nitrite (Negative) Urine Bilirubin (Negative) Urine Urobilinogen (0.2-1.0) Ur Leukocyte Esterase (Negative) Urine RBC (0-5) /hpf Urine WBC (0-5) /hpf Urine WBC Clumps (NOT SEEN) /hpf Ur Epithelial Cells (0-5) /hpf Urine Bacteria (FEW) /hpf Urine Mucus (FEW) /hpf MRSA (PCR) Result Diagrams: 01/28/18 06:15 01/28/18 06:15 Steve Results Last 24 hrs: Microbiology 01/27/18 22:55 Urine Culture - Preliminary Urine, Catheterized Gram Negative Rods - Problem List (1) Altered mental status SNOMED Code(s): 079359091 ICD Code: R41.82 - ALTERED MENTAL STATUS, UNSPECIFIED Status: Chronic Priority: Medium Current Visit: Yes Qualifiers: Altered mental status type: unspecified Qualified Code(s): R41.82 - Altered mental status, unspecified (2) Dementia SNOMED Code(s): 40133570 ICD Code: F03.90 - UNSPECIFIED DEMENTIA WITHOUT BEHAVIORAL DISTURBANCE Status: Chronic Priority: Medium Current Visit: Yes Qualifiers: Dementia type: Alzheimer's disease Alzheimer's disease onset: unspecified onset Dementia behavioral disturbance: without behavioral disturbance Qualified Code(s): G30.9 - Alzheimer's disease, unspecified; F02.80 - Dementia in other diseases classified elsewhere without behavioral disturbance (3) Frequent falls SNOMED Code(s): 008225794 ICD Code: R29.6 - REPEATED FALLS Status: Acute Priority: High Current Visit: Yes (4) Hypertension SNOMED Code(s): 43789866 ICD Code: I10 - ESSENTIAL (PRIMARY) HYPERTENSION Status: Chronic Priority : Medium Current Visit: Yes Qualifiers: Hypertension type: essential hypertension Qualified Code(s): I10 - Essential (primary) hypertension (5) Hypokalemia SNOMED Code(s): 17460062 ICD Code: E87.6 - HYPOKALEMIA Status: Acute Priority: High Current Visit: Yes (6) Hyponatremia SNOMED Code(s): 73458764 ICD Code: E87.1 - HYPO-OSMOLALITY AND HYPONATREMIA Status: Acute Priority : High Current Visit: Yes (7) Scalp laceration SNOMED Code(s): 607019779 ICD Code: S01.01XA - LACERATION WITHOUT FOREIGN BODY OF SCALP, INITIAL ENCOUNTER Status: Acute Priority: High Current Visit: Yes Qualifiers: Encounter type: subsequent encounter Qualified Code(s): S01.01XD - Laceration without foreign body of scalp, subsequent encounter (8) Contusion of scalp SNOMED Code(s): 86930471 ICD Code: S00.03XA - CONTUSION OF SCALP, INITIAL ENCOUNTER Status: Acute Priority: High Current Visit: Yes Qualifiers: Encounter type: initial encounter Qualified Code(s): S00.03XA - Contusion of scalp, initial encounter (9) Fall SNOMED Code(s): 8102189, 831736729 ICD Code: W19.XXXA - UNSPECIFIED FALL, INITIAL ENCOUNTER Status: Acute Priority: High Current Visit: Yes Qualifiers: Encounter type: initial encounter Qualified Code(s): W19.XXXA - Unspecified fall, initial encounter (10) Low back strain SNOMED Code(s): 260870613 ICD Code: S39.012A - STRAIN OF MUSCLE, FASCIA AND TENDON OF LOWER BACK, INIT Status: Acute Priority: High Current Visit: Yes Qualifiers: Encounter type: initial encounter Qualified Code(s): S39.012A - Strain of muscle, fascia and tendon of lower back, initial encounter (11) UTI (urinary tract infection) SNOMED Code(s): 28062351 ICD Code: N39.0 - URINARY TRACT INFECTION, SITE NOT SPECIFIED Status: Acute Priority: High Current Visit: Yes Qualifiers: Urinary tract infection type: acute cystitis Hematuria presence: without hematuria Qualified Code(s): N30.00 - Acute cystitis without hematuria (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 SNOMED Code(s): 260834187 ICD Code: E07.1 - DYSHORMOGENETIC GOITER Status: Chronic Priority: Low Current Visit: Yes (13) Elevated brain natriuretic peptide (BNP) level SNOMED Code(s): 307867237, 826877996 ICD Code: R79.89 - OTHER SPECIFIED ABNORMAL FINDINGS OF BLOOD CHEMISTRY Status: Acute Priority: High Current Visit: Yes Problem List Initiated/Reviewed/Updated: Yes Orders Last 24hrs: Active Orders 24 hr Category Date Time Status Patient Status [ADT] Routine ADT 01/28/18 00:02 Active Activity as Tolerated [RC] .Routine Care 01/28/18 01:26 Active Bedrest Bathroom Privileges [RC] ASDIRECTED Care 01/28/18 08:38 Active Bedrest Bedside Commode [RC] ASDIRECTED Care 01/28/18 08:38 Active Cardiac Monitoring [RC] INTERMITTENT Care 01/28/18 08:39 Active Height and Weight [RC] DAILY Care 01/28/18 08:38 Active Intake and Output [RC] QSHIFT Care 01/28/18 08:39 Active May Shower [RC] ASDIRECTED Care 01/28/18 08:38 Active Orthostatic Vital Signs [RC] ASDIRECTED Care 01/27/18 22:14 Active Oxygen Therapy [RC] PRN Care 01/28/18 08:38 Active Pulse Oximetry [RC] PRN Care 01/28/18 08:39 Active Up With Assistance [RC] ASDIRECTED Care 01/28/18 08:38 Active Up to Chair [RC] ASDIRECTED Care 01/28/18 08:38 Active VTE/DVT Education [RC] PER UNIT ROUTINE Care 01/28/18 08:38 Active Vital Signs [RC] Q4H Care 01/28/18 08:38 Active Wound Care [RC] DAILY Care 01/28/18 09:06 Ordered Consult to Case Management [CONS] Routine Cons 01/28/18 01:25 Active Consult to Occupational Therapy [OT Evaluation and Cons 01/28/18 01:26 Active Treatment] [CONS] Routine Consult to Physical Therapy [PT Evaluation and Cons 01/28/18 01:25 Active Treatment] [CONS] Routine Consult to Restaurant Lead [CONS] Routine Cons 01/28/18 01:25 Active POOL HALL INSPECTOR Evaluation and Treatment [CONS] Routine Cons 01/28/18 08:38 Active Clear Liquid Diet [DIET] Diet 01/28/18 Breakfast Active Echo Comp wo Cont [US] Routine Exams 01/28/18 08:00 Ordered Lumbar Spine 2 or 3V [CR] Stat Exams 01/28/18 08:50 Ordered BASIC METABOLIC PANEL,BMP [CHEM] AM Lab 01/29/18 05:11 Ordered BASIC METABOLIC PANEL,BMP [CHEM] AM Lab 01/30/18 05:11 Ordered BASIC METABOLIC PANEL,BMP [CHEM] AM Lab 01/31/18 05:11 Ordered BASIC METABOLIC PANEL,BMP [CHEM] AM Lab 02/01/18 05:11 Ordered BASIC METABOLIC PANEL,BMP [CHEM] AM Lab 02/02/18 05:11 Ordered CBC WITH AUTO DIFF [HEME] AM Lab 01/29/18 05:11 Ordered CBC WITH AUTO DIFF [HEME] AM Lab 01/30/18 05:11 Ordered CBC WITH AUTO DIFF [HEME] AM Lab 01/31/18 05:11 Ordered CBC WITH AUTO DIFF [HEME] AM Lab 02/01/18 05:11 Ordered CBC WITH AUTO DIFF [HEME] AM Lab 02/02/18 05:11 Ordered CULTURE URINE [RM] Stat Lab 01/27/18 22:55 Results MAGNESIUM [CHEM] AM Lab 01/29/18 05:11 Ordered MAGNESIUM [CHEM] AM Lab 01/30/18 05:11 Ordered MAGNESIUM [CHEM] AM Lab 01/31/18 05:11 Ordered MAGNESIUM [CHEM] AM Lab 02/01/18 05:11 Ordered MAGNESIUM [CHEM] AM Lab 02/02/18 05:11 Ordered METH-RESIST S.AUR,MRSA BY PCR [MOLEC] Routine Lab 01/28/18 01:48 Ordered PRO B-TYPE NATRIUR PEPT,BNPPRO [CHEM] DAILY Lab 01/29/18 09:00 Ordered PRO B-TYPE NATRIUR PEPT,BNPPRO [CHEM] DAILY Lab 01/30/18 09:00 Ordered PRO B-TYPE NATRIUR PEPT,BNPPRO [CHEM] DAILY Lab 01/31/18 09:00 Ordered PRO B-TYPE NATRIUR PEPT,BNPPRO [CHEM] DAILY Lab 02/01/18 09:00 Ordered PRO B-TYPE NATRIUR PEPT,BNPPRO [CHEM] DAILY Lab 02/02/18 09:00 Ordered Acetaminophen [Tylenol] Med 01/28/18 01:27 Active 650 mg PO Q4H PRN Acetaminophen/oxyCODONE [Percocet 325-5 MG] Med 01/28/18 08:38 Active 0.5 tab PO Q4H PRN Bisacodyl [Dulcolax] Med 01/28/18 08:38 Active 5 mg PO DAILY PRN Docusate Sodium [Colace] Med 01/28/18 08:38 Active 100 mg PO BID PRN Docusate Sodium/Sennosides [Senna Plus] Med 01/28/18 08:38 Active 1 tab PO BID PRN Famotidine [Pepcid] Med 01/28/18 09:00 Active 20 mg IVPUSH BID HYDROmorphone [Dilaudid] Med 01/28/18 08:38 Ordered 0.25 mg IVPUSH Q2H PRN Magnesium Hydroxide [Milk of Magnesia] Med 01/28/18 08:38 Ordered 30 ml PO Q12H PRN Polyethylene Glycol 3350 [MiraLAX] Med 01/28/18 08:38 Ordered 17 gm PO DAILY PRN Potassium Chloride [KCl 10 MEQ in Water 100 ML] 10 meq Med 01/28/18 09:15 Ordered Premix Bag 1 bag IV Q1H Promethazine [Phenergan] Med 01/28/18 08:38 Ordered 25 mg PO Q6H PRN Promethazine [Phenergan] 6.25 mg Med 01/28/18 08:38 Ordered Sodium Chloride 0.9% [Normal Saline] 50 ml IV Q6H Sodium Chloride 0.45% 1,000 ml Med 01/28/18 01:30 Active IV ASDIRECTED Sodium Chloride 0.9% [Saline Flush] Med 01/28/18 00:02 Active 10 ml FLUSH ASDIRECTED PRN Temazepam [Restoril] Med 01/28/18 01:27 Active 7.5 mg PO BEDTIME PRN cefTRIAXone [Rocephin] 1 gm Med 01/28/18 09:00 Active Sodium Chloride 0.9% [Normal Saline] 100 ml IV DAILY hydrALAZINE [Apresoline] Med 01/28/18 01:23 Active 20 mg IVPUSH Q6HR PRN Saline Lock Insert [OM.PC] Routine Oth 01/28/18 00:02 Ordered YAKELIN Hose [Antiembolic Hose] [OM.PC] Routine Oth 01/28/18 01:24 Ordered Resuscitation Status Routine Resus Stat 01/28/18 08:38 Ordered Medication Orders Acetaminophen (Tylenol) 650 mg PO Q4H PRN PRN Reason: Pain/Fever Bisacodyl (Dulcolax) 5 mg PO DAILY PRN PRN Reason: Constipation Docusate Sodium (Colace) 100 mg PO BID PRN PRN Reason: Constipation Famotidine (Pepcid) 20 mg IVPUSH BID KARRIE Hydralazine HCl (Apresoline) 20 mg IVPUSH Q6HR PRN PRN Reason: Hypertension Last Admin: 01/28/18 01:40 Dose: 20 mg Hydromorphone HCl (Dilaudid) 0.25 mg IVPUSH Q2H PRN PRN Reason: Pain (severe 7-10) Sodium Chloride (Sodium Chloride 0.45%) 1,000 mls @ 75 mls/hr IV ASDIRECTED KARRIE Last Admin: 01/28/18 01:39 Dose: 75 mls/hr Promethazine HCl 6.25 mg/ (Sodium Chloride) 50.25 mls @ 100 mls/hr IV Q6H PRN PRN Reason: Nausea/Vomiting Ceftriaxone Sodium 1 gm/ (Sodium Chloride) 100 mls @ 200 mls/hr IV DAILY KARRIE Potassium Chloride 10 meq/ (Premix) 100 mls @ 100 mls/hr IV Q1H KARRIE Stop: 01/28/18 13:14 Magnesium Hydroxide (Milk Of Magnesia) 30 ml PO Q12H PRN PRN Reason: Constipation Oxycodone/Acetaminophen (Percocet 325-5 Mg) 0.5 tab PO Q4H PRN PRN Reason: Pain (moderate 4-6) Polyethylene Glycol (Miralax) 17 gm PO DAILY PRN PRN Reason: Constipation Promethazine HCl (Phenergan) 25 mg PO Q6H PRN PRN Reason: Nausea/Vomiting Senna/Docusate Sodium (Senna Plus) 1 tab PO BID PRN PRN Reason: Constipation Sodium Chloride (Saline Flush) 10 ml FLUSH ASDIRECTED PRN PRN Reason: Keep Vein Open Last Admin: 01/28/18 00:15 Dose: 10 ml Temazepam (Restoril) 7.5 mg PO BEDTIME PRN PRN Reason: Insomnia Assessment/Plan Comment:: I/P: Acute: Fall -Risk Factors: h/o Alzheimer's, AMS, Fatigue, Weakness, Decreased appetite -H/o frequent falls; last visit 11 days ago -Feels dizziness and feels the "room spinning" at times -BP 138/61; Orthostatics normal in ED -No anemia via labs -Vestibular assessment ordered -PT/OT consult Scalp Laceration/Contusion -Fell 11 days ago and had laceration to scalp -Recent fall caused re-opening of wound -Unable to staple in ED -Pressure dressing and wound care Lower Back Pain -2/2 Fall -Lumbar Xray in ED--> Severe compression deformity of L3, mild compression deformities T11 and T12 -Consult with ortho Dr. Enriquez UTI -Risk factor: h/o of Incontinence -No clinical symptoms -U/A in ED--> Positive Nitrite, Leukocyte Esterase, Many Bacteria -Urine culture--> Gram negative rods -IV Rocephin 1g x3-5 days Altered Mental Status -Risk Factors: h/o Dementia, acute UTI, Decreased appetite, Fall with head injury -Oriented only to person and birthdate -Head CT in ED--> 1.8 cm subdural hygroma and left occipital cephalehematoma -Recommend outpt neurology consult -CM/SW consult for SNF placement Decreased Appetite -Risk factors: Confusion/Dementia -[employer] consult ordered to r/o difficulty swallowing -Clear liquid diet -Advance diet as tolerated -Per family she is able to eat whole foods, will advance for dinner Electrolyte Abnormalities -Most likely 2/2 decreased intake -Hypokalemia 3.2 and Hyponatremia 130 -IV NS -Monitor and supplement as needed Elevated BNP -No h/o heart failure, no pedal edema -Presented with Chest Pain in ED -BNP 1247 -EKG--> mild ST elevation, prolonged QRS -Troponin negative -ECHO ordered--> pending results -Monitor Chronic: HTN Hypothyroidism with Goiter--> TSH normal range Alzheimer's Disease Frequent [place] Plan: Transferred to Med-Surg today She remains stable and continues to improve clinically Other orders as indicated above CM/SW for discharge planning--> Most likely D/C to [facility] Routine AM labs PT/OT DVT Prophylaxis: YAKELIN [facility] Prophylaxis: Pepcid Ambulated with assistance Code Status: DNR/DNI; PCP: Dr. Vargas Hassan <Jena Salazar - Last Filed: 01/28/18 19:35> H&P History of Present Illness - General Admit Problem/Dx: Admission Diagnosis/Problem Admission Diagnosis/Problem Falls Exam - Vital Signs Vital Signs: Last Vital Signs Temp 37.0 C 01/28/18 17:19 Pulse 79 01/28/18 17:19 Resp 18 01/28/18 17:19 BP 120/92 H 01/28/18 17:19 Pulse Ox 98 01/28/18 17:19 Orthostatic Blood Pressure [ 186/68 Standing] Orthostatic Blood Pressure [ 184/70 Sitting] Orthostatic Blood Pressure [ 184/62 Supine] - Patient Data Lab Results Last 24 hrs: Laboratory Results - last 24 hr 01/27/18 01/27/18 01/27/18 Range/Units 22:30 22:30 22:55 WBC 6.58 (3.98-10.04) K/mm3 RBC 3.41 L (3.98-5.22) M/mm3 Hgb 10.5 L (11.2-15.7) gm/L Hct 31.3 L (34.1-44.9) % MCV 91.8 (79.4-94.8) fl MCH 30.8 (25.6-32.2) pg MCHC 33.5 (32.2-35.5) g/dl RDW Std Deviation 42.4 (36.4-46.3) fL Plt Count 277 (182-369) K/mm3 MPV 8.6 L (9.4-12.3) fl Neut % (Auto) (34.0-71.1) % Lymph % (Auto) (19.3-51.7) % [place] % (Auto) (4.7-12.5) % Eos % (Auto) (0.7-5.8) Baso % (Auto) (0.1-1.2) % Neut # (Auto) (1.56-6.13) K/mm3 Lymph # (Auto) (1.18-3.74) K/mm3 [place] # (Auto) (0.24-0.36) K/mm3 Eos # (Auto) (0.04-0.36) K/mm3 Baso # (Auto) (0.01-0.08) K/mm3 Neutrophils % (Manual) 77 H (40-60) % Band Neutrophils % 0 (0-10) % Lymphocytes % (Manual) 17 L (20-40) % Atypical Lymphs % 0 % Monocytes % (Manual) 4 (2-10) % Eosinophils % (Manual) 1 (0.7-5.8) % Basophils % (Manual) 1 (0.1-1.2) Platelet Estimate Adequate Plt Morphology Comment Normal RBC Morph Comment Normal Sodium 130 L (136-145) mEq/L Potassium 3.1 L (3.5-5.1) mEq/L Chloride 95 L (98-107) mEq/L Carbon Dioxide 25 (21-32) mEq/L Anion Gap 13.1 (5-15) BUN 10 (7-18) mg/dL Creatinine 0.6 (0.55-1.02) mg/dL Est Cr Clr Drug Dosing 60.27 mL/min Estimated GFR (MDRD) > 60 (>60) mL/min BUN/Creatinine Ratio 16.7 (14-18) Glucose 110 (83-115) mg/dL Calcium 8.9 (8.5-10.1) mg/dL Magnesium (1.8-2.4) mg/dl Total Bilirubin 0.6 (0.2-1.0) mg/dL AST 22 (15-37) U/L ALT 21 (14-59) U/L Alkaline Phosphatase 77 (46-116) U/L Troponin I < 0.017 (0.00-0.056) ng/mL C-Reactive Protein < 0.2 (<1.0) mg/dL NT-Pro-B Natriuret Pep (0-450) pg/mL Total Protein 6.5 (6.4-8.2) g/dl Albumin 3.4 (3.4-5.0) g/dl Globulin 3.1 gm/dL Albumin/Globulin Ratio 1.1 (1-2) Free T4 (0.76-1.46) ng/dL TSH 3rd Generation 2.373 (0.358-3.74) uIU/mL Urine Color Yellow (Yellow) Urine Appearance Slt cloudy H (Clear) Urine pH 6.5 (5.0-8.0) Ur Specific [place] 1.020 (1.005-1.030) Urine Protein Negative (Negative) Urine Glucose (UA) Negative (Negative) Urine Ketones Negative (Negative) Urine Occult Blood Negative (Negative) Urine Nitrite Positive H (Negative) Urine Bilirubin Negative (Negative) Urine Urobilinogen 0.2 (0.2-1.0) Ur Leukocyte Esterase Trace H (Negative) Urine RBC Not seen (0-5) /hpf Urine WBC 5-10 H (0-5) /hpf Urine WBC Clumps Few (NOT SEEN) /hpf Ur Epithelial Cells 0-5 (0-5) /hpf Urine Bacteria Many H (FEW) /hpf Urine Mucus Few (FEW) /hpf MRSA (PCR) 01/28/18 01/28/18 01/28/18 Range/Units 01:48 06:15 06:15 WBC (3.98-10.04) K/mm3 RBC (3.98-5.22) M/mm3 Hgb (11.2-15.7) gm/L Hct (34.1-44.9) % MCV (79.4-94.8) fl MCH (25.6-32.2) pg MCHC (32.2-35.5) g/dl RDW Std Deviation (36.4-46.3) fL Plt Count (182-369) K/mm3 MPV (9.4-12.3) fl Neut % (Auto) (34.0-71.1) % Lymph % (Auto) (19.3-51.7) % [place] % (Auto) (4.7-12.5) % Eos % (Auto) (0.7-5.8) Baso % (Auto) (0.1-1.2) % Neut # (Auto) (1.56-6.13) K/mm3 Lymph # (Auto) (1.18-3.74) K/mm3 [place] # (Auto) (0.24-0.36) K/mm3 Eos # (Auto) (0.04-0.36) K/mm3 Baso # (Auto) (0.01-0.08) K/mm3 Neutrophils % (Manual) (40-60) % Band Neutrophils % (0-10) % Lymphocytes % (Manual) (20-40) % Atypical Lymphs % % Monocytes % (Manual) (2-10) % Eosinophils % (Manual) (0.7-5.8) % Basophils % (Manual) (0.1-1.2) Platelet Estimate Plt Morphology Comment RBC Morph Comment Sodium 130 L (136-145) mEq/L Potassium 3.2 L (3.5-5.1) mEq/L Chloride 95 L (98-107) mEq/L Carbon Dioxide 25 (21-32) mEq/L Anion Gap 13.2 (5-15) BUN 7 (7-18) mg/dL Creatinine 0.6 (0.55-1.02) mg/dL Est Cr Clr Drug Dosing 60.27 mL/min Estimated GFR (MDRD) > 60 (>60) mL/min BUN/Creatinine Ratio 11.7 L (14-18) Glucose 110 (83-115) mg/dL Calcium 8.8 (8.5-10.1) mg/dL Magnesium 2.0 (1.8-2.4) mg/dl Total Bilirubin (0.2-1.0) mg/dL AST (15-37) U/L ALT (14-59) U/L Alkaline Phosphatase (46-116) U/L Troponin I 0.036 (0.00-0.056) ng/mL C-Reactive Protein (<1.0) mg/dL NT-Pro-B Natriuret Pep 1247 H (0-450) pg/mL Total Protein (6.4-8.2) g/dl Albumin (3.4-5.0) g/dl Globulin gm/dL Albumin/Globulin Ratio (1-2) Free T4 (0.76-1.46) ng/dL TSH 3rd Generation (0.358-3.74) uIU/mL Urine Color (Yellow) Urine Appearance (Clear) Urine pH (5.0-8.0) Ur Specific [place] (1.005-1.030) Urine Protein (Negative) Urine Glucose (UA) (Negative) Urine Ketones (Negative) Urine Occult Blood (Negative) Urine Nitrite (Negative) Urine Bilirubin (Negative) Urine Urobilinogen (0.2-1.0) Ur Leukocyte Esterase (Negative) Urine RBC (0-5) /hpf Urine WBC (0-5) /hpf Urine WBC Clumps (NOT SEEN) /hpf Ur Epithelial Cells (0-5) /hpf Urine Bacteria (FEW) /hpf Urine Mucus (FEW) /hpf MRSA (PCR) Negative 01/28/18 01/28/18 Range/Units 06:15 06:15 WBC 7.00 (3.98-10.04) K/mm3 RBC 3.84 L (3.98-5.22) M/mm3 Hgb 11.7 (11.2-15.7) gm/L Hct 34.8 (34.1-44.9) % MCV 90.6 (79.4-94.8) fl MCH 30.5 (25.6-32.2) pg MCHC 33.6 (32.2-35.5) g/dl RDW Std Deviation 43.1 (36.4-46.3) fL Plt Count 320 (182-369) K/mm3 MPV 8.7 L (9.4-12.3) fl Neut % (Auto) 72.1 H (34.0-71.1) % Lymph % (Auto) 16.3 L (19.3-51.7) % [place] % (Auto) 9.6 (4.7-12.5) % Eos % (Auto) 1.3 (0.7-5.8) Baso % (Auto) 0.6 (0.1-1.2) % Neut # (Auto) 5.05 (1.56-6.13) K/mm3 Lymph # (Auto) 1.14 L (1.18-3.74) K/mm3 [place] # (Auto) 0.67 H (0.24-0.36) K/mm3 Eos # (Auto) 0.09 (0.04-0.36) K/mm3 Baso # (Auto) 0.04 (0.01-0.08) K/mm3 Neutrophils % (Manual) (40-60) % Band Neutrophils % (0-10) % Lymphocytes % (Manual) (20-40) % Atypical Lymphs % % Monocytes % (Manual) (2-10) % Eosinophils % (Manual) (0.7-5.8) % Basophils % (Manual) (0.1-1.2) Platelet Estimate Plt Morphology Comment RBC Morph Comment Sodium (136-145) mEq/L Potassium (3.5-5.1) mEq/L Chloride (98-107) mEq/L Carbon Dioxide (21-32) mEq/L Anion Gap (5-15) BUN (7-18) mg/dL Creatinine (0.55-1.02) mg/dL Est Cr Clr Drug Dosing mL/min Estimated GFR (MDRD) (>60) mL/min BUN/Creatinine Ratio (14-18) Glucose (83-115) mg/dL Calcium (8.5-10.1) mg/dL Magnesium (1.8-2.4) mg/dl Total Bilirubin (0.2-1.0) mg/dL AST (15-37) U/L ALT (14-59) U/L Alkaline Phosphatase (46-116) U/L Troponin I (0.00-0.056) ng/mL C-Reactive Protein (<1.0) mg/dL NT-Pro-B Natriuret Pep (0-450) pg/mL Total Protein (6.4-8.2) g/dl Albumin (3.4-5.0) g/dl Globulin gm/dL Albumin/Globulin Ratio (1-2) Free T4 1.10 (0.76-1.46) ng/dL TSH 3rd Generation (0.358-3.74) uIU/mL Urine Color (Yellow) Urine Appearance (Clear) Urine pH (5.0-8.0) Ur Specific [place] (1.005-1.030) Urine Protein (Negative) Urine Glucose (UA) (Negative) Urine Ketones (Negative) Urine Occult Blood (Negative) Urine Nitrite (Negative) Urine Bilirubin (Negative) Urine Urobilinogen (0.2-1.0) Ur Leukocyte Esterase (Negative) Urine RBC (0-5) /hpf Urine WBC (0-5) /hpf Urine WBC Clumps (NOT SEEN) /hpf Ur Epithelial Cells (0-5) /hpf Urine Bacteria (FEW) /hpf Urine Mucus (FEW) /hpf MRSA (PCR) Result Diagrams: 01/28/18 06:15 01/28/18 06:15 Steve Results Last 24 hrs: Microbiology 01/27/18 22:55 Urine Culture - Preliminary Urine, Catheterized Gram Negative Rods Orders Last 24hrs: Active Orders 24 hr Category Date Time Status Patient Status [ADT] Routine ADT 01/28/18 11:17 Active Activity as Tolerated [RC] .Routine Care 01/28/18 01:26 Active Bedrest Bathroom Privileges [RC] ASDIRECTED Care 01/28/18 08:38 Inactive Bedrest Bedside Commode [RC] ASDIRECTED Care 01/28/18 08:38 Inactive Cardiac Monitoring [RC] INTERMITTENT Care 01/28/18 08:39 Active Height and Weight [RC] 0400 Care 01/28/18 08:38 Active Intake and Output [RC] 04,16 Care 01/28/18 08:39 Active May Shower [RC] ASDIRECTED Care 01/28/18 08:38 Active Notify Provider Consults [RC] ASDIRECTED Care 01/28/18 13:09 Active Orthostatic Vital Signs [RC] ASDIRECTED Care 01/27/18 22:14 Active Oxygen Therapy [RC] PRN Care 01/28/18 08:38 Active Pulse Oximetry [RC] PRN Care 01/28/18 08:39 Active Up With Assistance [RC] ASDIRECTED Care 01/28/18 08:38 Active Up to Chair [RC] ASDIRECTED Care 01/28/18 08:38 Active VTE/DVT Education [RC] PER UNIT ROUTINE Care 01/28/18 08:38 Active Vital Signs [RC] Q4H Care 01/28/18 08:38 Active Wound Care [RC] DAILY Care 01/28/18 09:06 Active Consult to Case Management [CONS] Routine Cons 01/28/18 01:25 Active Consult to Occupational Therapy [OT Evaluation and Cons 01/28/18 01:26 Active Treatment] [CONS] Routine Consult to Physical Therapy [PT Evaluation and Cons 01/28/18 01:25 Active Treatment] [CONS] Routine Consult to Physician [CONS] Routine Cons 01/28/18 13:05 Active Consult to Restaurant Lead [CONS] Routine Cons 01/28/18 01:25 Active PT Evaluation and Treatment [CONS] Routine Cons 01/28/18 12:30 Active [employer]OR Evaluation and Treatment [CONS] Routine Cons 01/28/18 08:38 Active Regular Diet [DIET] Diet 01/28/18 Dinner Active BASIC METABOLIC PANEL,BMP [CHEM] AM Lab 01/29/18 05:11 Ordered BASIC METABOLIC PANEL,BMP [CHEM] AM Lab 01/30/18 05:11 Ordered BASIC METABOLIC PANEL,BMP [CHEM] AM Lab 01/31/18 05:11 Ordered BASIC METABOLIC PANEL,BMP [CHEM] AM Lab 02/01/18 05:11 Ordered BASIC METABOLIC PANEL,BMP [CHEM] AM Lab 02/02/18 05:11 Ordered CBC WITH AUTO DIFF [HEME] AM Lab 01/29/18 05:11 Ordered CBC WITH AUTO DIFF [HEME] AM Lab 01/30/18 05:11 Ordered CBC WITH AUTO DIFF [HEME] AM Lab 01/31/18 05:11 Ordered CBC WITH AUTO DIFF [HEME] AM Lab 02/01/18 05:11 Ordered CBC WITH AUTO DIFF [HEME] AM Lab 02/02/18 05:11 Ordered CULTURE URINE [RM] Stat Lab 01/27/18 22:55 Results MAGNESIUM [CHEM] AM Lab 01/29/18 05:11 Ordered MAGNESIUM [CHEM] AM Lab 01/30/18 05:11 Ordered MAGNESIUM [CHEM] AM Lab 01/31/18 05:11 Ordered MAGNESIUM [CHEM] AM Lab 02/01/18 05:11 Ordered MAGNESIUM [CHEM] AM Lab 02/02/18 05:11 Ordered METH-RESIST S.AUR,MRSA BY PCR [MOLEC] Routine Lab 01/28/18 01:48 Ordered PRO B-TYPE NATRIUR PEPT,BNPPRO [CHEM] DAILY Lab 01/29/18 09:00 Ordered PRO B-TYPE NATRIUR PEPT,BNPPRO [CHEM] DAILY Lab 01/30/18 09:00 Ordered PRO B-TYPE NATRIUR PEPT,BNPPRO [CHEM] DAILY Lab 01/31/18 09:00 Ordered PRO B-TYPE NATRIUR PEPT,BNPPRO [CHEM] DAILY Lab 02/01/18 09:00 Ordered PRO B-TYPE NATRIUR PEPT,BNPPRO [CHEM] DAILY Lab 02/02/18 09:00 Ordered Acetaminophen [Tylenol] Med 01/28/18 01:27 Active 650 mg PO Q4H PRN Acetaminophen/oxyCODONE [Percocet 325-5 MG] Med 01/28/18 08:38 Active 0.5 tab PO Q4H PRN Bisacodyl [Dulcolax] Med 01/28/18 08:38 Active 5 mg PO DAILY PRN Docusate Sodium [Colace] Med 01/28/18 08:38 Active 100 mg PO BID PRN Docusate Sodium/Sennosides [Senna Plus] Med 01/28/18 08:38 Active 1 tab PO BID PRN Famotidine [Pepcid] Med 01/28/18 11:14 Active 20 mg PO BID HYDROmorphone [Dilaudid] Med 01/28/18 08:38 Active 0.25 mg IVPUSH Q2H PRN Hydrochlorothiazide Med 01/28/18 11:30 Active 12.5 mg PO DAILY Levothyroxine [Synthroid] Med 01/28/18 11:00 Active 50 mcg PO DAILY Losartan [Cozaar] Med 01/28/18 11:16 Active 50 mg PO DAILY Magnesium Hydroxide [Milk of Magnesia] Med 01/28/18 08:38 Active 30 ml PO Q12H PRN Polyethylene Glycol 3350 [MiraLAX] Med 01/28/18 08:38 Active 17 gm PO DAILY PRN Promethazine [Phenergan] Med 01/28/18 08:38 Active 25 mg PO Q6H PRN Promethazine [Phenergan] 6.25 mg Med 01/28/18 08:38 Active Sodium Chloride 0.9% [Normal Saline] 50 ml IV Q6H Sodium Chloride 0.45% 1,000 ml Med 01/28/18 01:30 Active IV ASDIRECTED Sodium Chloride 0.9% [Saline Flush] Med 01/28/18 00:02 Active 10 ml FLUSH ASDIRECTED PRN Temazepam [Restoril] Med 01/28/18 01:27 Active 7.5 mg PO BEDTIME PRN cefTRIAXone [Rocephin] 1 gm Med 01/28/18 11:30 Active Sodium Chloride 0.9% [Normal Saline] 100 ml IV Q24H hydrALAZINE [Apresoline] Med 01/28/18 01:23 Active 20 mg IVPUSH Q6HR PRN Saline Lock Insert [OM.PC] Routine Oth 01/28/18 00:02 Ordered YAKELIN Hose [Antiembolic Hose] [OM.PC] Routine Oth 01/28/18 01:24 Ordered Resuscitation Status Routine Resus Stat 01/28/18 08:38 Ordered Medication Orders Acetaminophen (Tylenol) 650 mg PO Q4H PRN PRN Reason: Pain/Fever Bisacodyl (Dulcolax) 5 mg PO DAILY PRN PRN Reason: Constipation Docusate Sodium (Colace) 100 mg PO BID PRN PRN Reason: Constipation Famotidine (Pepcid) 20 mg PO BID [facility] Last Admin: 01/28/18 11:58 Dose: 20 mg Hydralazine HCl (Apresoline) 20 mg IVPUSH Q6HR PRN PRN Reason: Hypertension Last Admin: 01/28/18 01:40 Dose: 20 mg Hydrochlorothiazide (Hydrochlorothiazide) 12.5 mg PO DAILY [facility] Last Admin: 01/28/18 11:52 Dose: 12.5 mg Hydromorphone HCl (Dilaudid) 0.25 mg IVPUSH Q2H PRN PRN Reason: Pain (severe 7-10) Sodium Chloride (Sodium Chloride 0.45%) 1,000 mls @ 75 mls/hr IV ASDIRECTED [facility] Last Admin: 01/28/18 15:11 Dose: 75 mls/hr Infusion: 01/28/18 14:59 Dose: 75 mls/hr Admin: 01/28/18 01:39 Dose: 75 mls/hr Promethazine HCl 6.25 mg/ (Sodium Chloride) 50.25 mls @ 100 mls/hr IV Q6H PRN PRN Reason: Nausea/Vomiting Ceftriaxone Sodium 1 gm/ (Sodium Chloride) 100 mls @ 200 mls/hr IV Q24H [facility] Last Admin: 01/28/18 12:08 Dose: 200 mls/hr Levothyroxine Sodium (Synthroid) 50 mcg PO DAILY [facility] Last Admin: 01/28/18 12:10 Dose: Admin: 01/28/18 12:05 Dose: 50 mcg Losartan Potassium (Cozaar) 50 mg PO DAILY [facility] Last Admin: 01/28/18 12:00 Dose: 50 mg Magnesium Hydroxide (Milk Of Magnesia) 30 ml PO Q12H PRN PRN Reason: Constipation Oxycodone/Acetaminophen (Percocet 325-5 Mg) 0.5 tab PO Q4H PRN PRN Reason: Pain (moderate 4-6) Polyethylene Glycol (Miralax) 17 gm PO DAILY PRN PRN Reason: Constipation Promethazine HCl (Phenergan) 25 mg PO Q6H PRN PRN Reason: Nausea/Vomiting Senna/Docusate Sodium (Senna Plus) 1 tab PO BID PRN PRN Reason: Constipation Sodium Chloride (Saline Flush) 10 ml FLUSH ASDIRECTED PRN PRN Reason: Keep Vein Open Last Admin: 01/28/18 00:15 Dose: 10 ml Temazepam (Restoril) 7.5 mg PO BEDTIME PRN PRN Reason: Insomnia Assessment/Plan Comment:: ST elevation noted on ECG does not meet criteria for ischemia.
--- NOTE | 2018-01-28 10:18 | CR ---
Lumbar spine: AP, lateral and coned-down lateral views centered to the lumbosacral junction were obtained. Comparison: Previous lumbar spine x-ray of 10/04/17. Severe compression deformity is seen of L3. This is an interval change from previous exam. Mild spondylolisthesis is noted at L3-L4 compatible with degenerative apophyseal change. Mild to moderate disc space narrowing is noted at L4-L5 with mild spondylolisthesis compatible with degenerative apophyseal change. Mild compression deformities are seen of T11 and T12 which appear to be old. Mild scattered endplate osteophytes are seen. Pedicles are intact. Visualized transverse and spinous processes are intact. Sacroiliac joints show minimal degenerative sclerosis. Vascular calcification noted within the aorta. Impression: 1. Severe compression deformity of L3 which is an interval change from prior study. 2. Degenerative change as noted above. 3. Mild compression deformities of T11 and T12 which appear old. Diagnostic code #3
[2018-01-28] MEDS ORDERED: HYDROCHLOROTHIAZIDE PO SCH (11:00)
[2018-01-28] MEDS ORDERED: LOSARTAN PO SCH (11:00)
[2018-01-28] MEDS: Hydrochlorothiazide 12.5 MG Cap PO SCH (11:52)
[2018-01-28] MEDS: Famotidine 20 MG Tab PO SCH ×2 (11:58→21:31)
[2018-01-28] MEDS: Losartan 25 MG Tab PO SCH (12:00)
[2018-01-28] MEDS: Levothyroxine 50 MCG Tab PO SCH ×2 (12:05→12:10)
[2018-01-28] MEDS: cefTRIAXone 1 GM in Sodium Chloride 0.9% 100 ML IV SCH (12:08)
[2018-01-28] MEDS: Potassium Chloride 10 MEQ in Premix Bag 1 BAG IV SCH ×5 (12:15→16:21)
[2018-01-28] MEDS ORDERED: Naproxen 500 MG Tab PO PRN (19:55)
[2018-01-29] MEDS: Sodium Chloride 0.45% 1,000 ML IV SCH ×2 (05:31→18:57)
[2018-01-29] MEDS: Calcium Carbonate 600 MG Tab PO SCH ×2 (07:02→16:57)
[2018-01-29] MEDS: Levothyroxine 50 MCG Tab PO SCH (09:09)
[2018-01-29] MEDS: Losartan 25 MG Tab PO SCH (09:09)
[2018-01-29] MEDS: Famotidine 20 MG Tab PO SCH ×2 (09:09→20:26)
[2018-01-29] MEDS: Hydrochlorothiazide 12.5 MG Cap PO SCH (09:09)
--- NOTE | 2018-01-29 09:23 | PCM.PN ---
- General Info Date of Service: 01/29/18 Admission Dx/Problem (Free Text): Admission Diagnosis/Problem Admission Diagnosis/Problem Falls Subjective Update: In to see Landy. Family is not present at this time but RN sitting with patient while patient is eating breakfast. Patient reports she had a good breakfast which RN verified. Appears calm but was not convinced that she is in the right hospital and was worried her [id number] would not be able to find her. Reports that her head wound is not painful. Endorses that she slept well but is still fatigued. Denies dysuria; however, RN reports that patient has reported "burning" when urinating. Noted patient ambulating well with assistance in hallway. Functional Status: Reports: Pain Controlled, Tolerating Diet, Ambulating, Urinating Pain Score: 0 - Review of Systems General: Reports: No Symptoms, Fatigue. Denies: Fever HEENT: Reports: No Symptoms Pulmonary: Reports: No Symptoms. Denies: Shortness of Breath, Cough Cardiovascular: Reports: No Symptoms. Denies: Chest Pain, Edema Gastrointestinal: Reports: No Symptoms. Denies: Abdominal Pain, Constipation, Diarrhea, Nausea, Vomiting Genitourinary: Reports: No Symptoms. Denies: Dysuria, Frequency Musculoskeletal: Reports: No Symptoms Skin: Reports: No Symptoms, Other (Head wound on left side that is closed and healing well ) Neurological: Reports: Confusion Psychiatric: Reports: Confusion - Patient Data Vitals - Most Recent: Last Vital Signs Temp 97.9 F 01/29/18 08:52 Pulse 74 01/29/18 08:52 Resp 17 01/29/18 08:52 BP 122/60 01/29/18 09:09 Pulse Ox 97 01/29/18 08:52 Orthostatic Blood Pressure [ 186/68 Standing] Orthostatic Blood Pressure [ 184/70 Sitting] Orthostatic Blood Pressure [ 184/62 Supine] Weight - Most Recent: 126 lb 3.2 oz I&O - Last 24 Hours: Intake & Output 01/28/18 01/29/18 01/29/18 22:59 06:59 14:59 Intake Total 980 1184 Output Total 1050 400 Balance -70 784 Lab Results Last 24 Hours: Laboratory Results - last 24 hr 01/28/18 01/29/18 01/29/18 Range/Units 06:15 06:35 06:35 WBC 4.09 (3.98-10.04) K/mm3 RBC 3.40 L (3.98-5.22) M/mm3 Hgb 10.5 L (11.2-15.7) gm/L Hct 31.7 L (34.1-44.9) % MCV 93.2 (79.4-94.8) fl MCH 30.9 (25.6-32.2) pg MCHC 33.1 (32.2-35.5) g/dl RDW Std Deviation 43.5 (36.4-46.3) fL Plt Count 279 (182-369) K/mm3 MPV 8.8 L (9.4-12.3) fl Neut % (Auto) 56.7 (34.0-71.1) % Lymph % (Auto) 26.4 (19.3-51.7) % [place] % (Auto) 12.0 (4.7-12.5) % Eos % (Auto) 3.7 (0.7-5.8) Baso % (Auto) 1.0 (0.1-1.2) % Neut # (Auto) 2.32 (1.56-6.13) K/mm3 Lymph # (Auto) 1.08 L (1.18-3.74) K/mm3 [place] # (Auto) 0.49 H (0.24-0.36) K/mm3 Eos # (Auto) 0.15 (0.04-0.36) K/mm3 Baso # (Auto) 0.04 (0.01-0.08) K/mm3 Sodium 132 L (136-145) mEq/L Potassium 3.7 (3.5-5.1) mEq/L Chloride 99 (98-107) mEq/L Carbon Dioxide 28 (21-32) mEq/L Anion Gap 8.7 (5-15) BUN 5 L (7-18) mg/dL Creatinine 0.7 (0.55-1.02) mg/dL Est Cr Clr Drug Dosing 51.66 mL/min Estimated GFR (MDRD) > 60 (>60) mL/min BUN/Creatinine Ratio 7.1 L (14-18) Glucose 89 (83-115) mg/dL Calcium 8.4 L (8.5-10.1) mg/dL Magnesium 1.9 (1.8-2.4) mg/dl NT-Pro-B Natriuret Pep (0-450) pg/mL Free T4 1.10 (0.76-1.46) ng/dL 01/29/18 Range/Units 06:35 WBC (3.98-10.04) K/mm3 RBC (3.98-5.22) M/mm3 Hgb (11.2-15.7) gm/L Hct (34.1-44.9) % MCV (79.4-94.8) fl MCH (25.6-32.2) pg MCHC (32.2-35.5) g/dl RDW Std Deviation (36.4-46.3) fL Plt Count (182-369) K/mm3 MPV (9.4-12.3) fl Neut % (Auto) (34.0-71.1) % Lymph % (Auto) (19.3-51.7) % [place] % (Auto) (4.7-12.5) % Eos % (Auto) (0.7-5.8) Baso % (Auto) (0.1-1.2) % Neut # (Auto) (1.56-6.13) K/mm3 Lymph # (Auto) (1.18-3.74) K/mm3 [place] # (Auto) (0.24-0.36) K/mm3 Eos # (Auto) (0.04-0.36) K/mm3 Baso # (Auto) (0.01-0.08) K/mm3 Sodium (136-145) mEq/L Potassium (3.5-5.1) mEq/L Chloride (98-107) mEq/L Carbon Dioxide (21-32) mEq/L Anion Gap (5-15) BUN (7-18) mg/dL Creatinine (0.55-1.02) mg/dL Est Cr Clr Drug Dosing mL/min Estimated GFR (MDRD) (>60) mL/min BUN/Creatinine Ratio (14-18) Glucose (83-115) mg/dL Calcium (8.5-10.1) mg/dL Magnesium (1.8-2.4) mg/dl NT-Pro-B Natriuret Pep 1205 H (0-450) pg/mL Free T4 (0.76-1.46) ng/dL Steve Results Last 24 Hours: Microbiology 01/27/18 22:55 Urine Culture - Preliminary Urine, Catheterized Gram Negative Rods Med Orders - Current: Current Medications Acetaminophen (Tylenol) 650 mg PO Q4H PRN PRN Reason: Pain/Fever Bisacodyl (Dulcolax) 5 mg PO DAILY PRN PRN Reason: Constipation Calcium Carbonate/Glycine (Calcium Carbonate) 600 mg PO BIDMEALS ON LICENSE OF [facility] Last Admin: 01/29/18 07:02 Dose: 600 mg Docusate Sodium (Colace) 100 mg PO BID PRN PRN Reason: Constipation Famotidine (Pepcid) 20 mg PO BID ON LICENSE OF [facility] Last Admin: 01/29/18 09:09 Dose: 20 mg Hydralazine HCl (Apresoline) 20 mg IVPUSH Q6HR PRN PRN Reason: Hypertension Last Admin: 01/28/18 01:40 Dose: 20 mg Hydrochlorothiazide (Hydrochlorothiazide) 12.5 mg PO DAILY ON LICENSE OF [facility] Last Admin: 01/29/18 09:09 Dose: 12.5 mg Hydromorphone HCl (Dilaudid) 0.25 mg IVPUSH Q2H PRN PRN Reason: Pain (severe 7-10) Sodium Chloride (Sodium Chloride 0.45%) 1,000 mls @ 75 mls/hr IV ASDIRECTED ON LICENSE OF [facility] Last Admin: 01/29/18 05:31 Dose: 75 mls/hr Promethazine HCl 6.25 mg/ (Sodium Chloride) 50.25 mls @ 100 mls/hr IV Q6H PRN PRN Reason: Nausea/Vomiting Ceftriaxone Sodium 1 gm/ (Sodium Chloride) 100 mls @ 200 mls/hr IV Q24H ON LICENSE OF [facility] Last Admin: 01/28/18 12:08 Dose: 200 mls/hr Levothyroxine Sodium (Synthroid) 50 mcg PO DAILY ON LICENSE OF [facility] Last Admin: 01/29/18 09:09 Dose: 50 mcg Losartan Potassium (Cozaar) 50 mg PO DAILY ON LICENSE OF [facility] Last Admin: 01/29/18 09:09 Dose: 50 mg Magnesium Hydroxide (Milk Of Magnesia) 30 ml PO Q12H PRN PRN Reason: Constipation Naproxen (Naprosyn) 250 mg PO Q12H PRN PRN Reason: Pain Oxycodone/Acetaminophen (Percocet 325-5 Mg) 0.5 tab PO Q4H PRN PRN Reason: Pain (moderate 4-6) Last Admin: 01/28/18 22:05 Dose: 0.5 tab Polyethylene Glycol (Miralax) 17 gm PO DAILY PRN PRN Reason: Constipation Promethazine HCl (Phenergan) 25 mg PO Q6H PRN PRN Reason: Nausea/Vomiting Senna/Docusate Sodium (Senna Plus) 1 tab PO BID PRN PRN Reason: Constipation Sodium Chloride (Saline Flush) 10 ml FLUSH ASDIRECTED PRN PRN Reason: Keep Vein Open Last Admin: 01/28/18 00:15 Dose: 10 ml Temazepam (Restoril) 7.5 mg PO BEDTIME PRN PRN Reason: Insomnia Last Admin: 01/28/18 22:05 Dose: 7.5 mg Discontinued Medications Acetaminophen (Tylenol) 650 mg PO Q4H PRN PRN Reason: Pain (Mild 1-3)/fever Ceftriaxone Sodium (Rocephin) 1 gm IVPUSH ONETIME ONE Stop: 01/28/18 08:46 Last Admin: 01/28/18 12:45 Dose: Not Given Famotidine (Pepcid) 20 mg IVPUSH BID ON LICENSE OF [facility] Last Admin: 01/28/18 12:45 Dose: Not Given Ceftriaxone Sodium 1 gm/ (Sodium Chloride) 100 mls @ 200 mls/hr IV DAILY ON LICENSE OF [facility] Ceftriaxone Sodium 1 gm/ (Sodium Chloride) 100 mls @ 200 mls/hr IV DAILY ON LICENSE OF [facility] Last Admin: 01/28/18 12:45 Dose: Not Given Potassium Chloride 10 meq/ (Premix) 100 mls @ 100 mls/hr IV Q1H ON LICENSE OF [facility] Stop: 01/28/18 13:14 Last Admin: 01/28/18 15:14 Dose: Not Given Potassium Chloride 10 meq/ (Premix) 100 mls @ 100 mls/hr IV Q1H ON LICENSE OF [facility] Stop: 01/28/18 17:14 Last Admin: 01/28/18 16:21 Dose: 100 mls/hr Lidocaine/Epinephrine (Xylocaine 1% With Epinephrine 1:100,000) 20 ml INJECT ONETIME ONE Stop: 01/27/18 23:01 Last Admin: 01/27/18 23:09 Dose: 20 ml Losartan/Hydrochlorothiazide 1 Tab 0 each PO DAILY ON LICENSE OF [facility] Last Admin: 01/28/18 12:45 Dose: Not Given - Exam Quality Assessment: DVT Prophylaxis. No: Supplemental Oxygen General: Alert (to person only ), Cooperative, No Acute Distress HEENT: Pupils Equal, Pupils Reactive Neck: Supple, Other (left goiter present ). No: Lymphadenopathy, Carotid Bruit Lungs: Clear to Auscultation, Normal Respiratory Effort Cardiovascular: Regular Rate, Regular Rhythm, No Murmurs GI/Abdominal Exam: Normal Bowel Sounds, Soft, Non-Tender, No Distention (Female) Exam: Deferred Back Exam: Normal Inspection, Full Range of Motion, Vertebral Tenderness (lower back ) Extremities: Normal Inspection, Other (Compression stockings present ). No: Pedal Edema Peripheral Pulses: 1+: Posterior Tibial (L), Posterior Tibial (R), Dorsalis Pedis (L), Dorsalis Pedis (R) Skin: Warm, Dry Wound/Incisions: Healing Well, No Drainage, Other (2 cm laceration to left posterior scalp) Neurological: No New Focal Deficit, Cranial Nerves Intact (grossly ) Psy/Mental Status: Alert, Hallucinations, Other (slightly flat affect ) - Problem List & Annotations (1) Contusion of scalp SNOMED Code(s): 98408030 Code(s): S00.03XA - CONTUSION OF SCALP, INITIAL ENCOUNTER Status: Acute Priority: High Current Visit: Yes Qualifiers: Encounter type: subsequent encounter Qualified Code(s): S00.03XD - Contusion of scalp, subsequent encounter (2) Elevated brain natriuretic peptide (BNP) level SNOMED Code(s): 178206452, 882326619 Code(s): R79.89 - OTHER SPECIFIED ABNORMAL FINDINGS OF BLOOD CHEMISTRY Status: Acute Priority: High Current Visit: Yes (3) Fall SNOMED Code(s): 7352959, 188975359 Code(s): W19.XXXA - UNSPECIFIED FALL, INITIAL ENCOUNTER Status: Acute Priority: High Current Visit: Yes Qualifiers: Encounter type: initial encounter Qualified Code(s): W19.XXXA - Unspecified fall, initial encounter (4) Frequent falls SNOMED Code(s): 918183078 Code(s): R29.6 - REPEATED FALLS Status: Acute Priority: High Current Visit: Yes (5) Hypokalemia SNOMED Code(s): 79868878 Code(s): E87.6 - HYPOKALEMIA Status: Acute Priority: High Current Visit : Yes (6) Hyponatremia SNOMED Code(s): 97197863 Code(s): E87.1 - HYPO-OSMOLALITY AND HYPONATREMIA Status: Acute Priority : High Current Visit: Yes (7) Laceration of head SNOMED Code(s): 978835734 Code(s): S01.91XA - LACERATION W/O FOREIGN BODY OF UNSP PART OF HEAD, INIT Status: Acute Priority: High Current Visit: Yes Qualifiers: Encounter type: subsequent encounter Location of open wound of head: unspecified part of head (8) Low back strain SNOMED Code(s): 943676910 Code(s): S39.012A - STRAIN OF MUSCLE, FASCIA AND TENDON OF LOWER BACK, INIT Status: Acute Priority: High Current Visit: Yes Qualifiers: Encounter type: subsequent encounter Qualified Code(s): S39.012D - Strain of muscle, fascia and tendon of lower back, subsequent encounter (9) Scalp laceration SNOMED Code(s): 413388950 Code(s): S01.01XA - LACERATION WITHOUT FOREIGN BODY OF SCALP, INITIAL ENCOUNTER Status: Acute Priority: High Current Visit: Yes Qualifiers: Encounter type: subsequent encounter Qualified Code(s): S01.01XD - Laceration without foreign body of scalp, subsequent encounter (10) UTI (urinary tract infection) SNOMED Code(s): 22809361 Code(s): N39.0 - URINARY TRACT INFECTION, SITE NOT SPECIFIED Status: Acute Priority: High Current Visit: Yes Qualifiers: Urinary tract infection type: acute cystitis Hematuria presence: without hematuria Qualified Code(s): N30.00 - Acute cystitis without hematuria (11) Altered mental status SNOMED Code(s): 321756158 Code(s): R41.82 - ALTERED MENTAL STATUS, UNSPECIFIED Status: Chronic Priority: Medium Current Visit: Yes Qualifiers: Altered mental status type: unspecified Qualified Code(s): R41.82 - Altered mental status, unspecified (12) Dementia SNOMED Code(s): 13424934 Code(s): F03.90 - UNSPECIFIED DEMENTIA WITHOUT BEHAVIORAL DISTURBANCE Status: Chronic Priority: Medium Current Visit: Yes Qualifiers: Dementia type: Alzheimer's disease Alzheimer's disease onset: unspecified onset Dementia behavioral disturbance: without behavioral disturbance Qualified Code(s): G30.9 - Alzheimer's disease, unspecified; F02.80 - Dementia in other diseases classified elsewhere without behavioral disturbance (13) Hypertension SNOMED Code(s): 96454566 Code(s): I10 - ESSENTIAL (PRIMARY) HYPERTENSION Status: Chronic Priority : Medium Current Visit: Yes Qualifiers: Hypertension type: essential hypertension Qualified Code(s): I10 - Essential (primary) hypertension (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 SNOMED Code(s): 206730834 Code(s): E07.1 - DYSHORMOGENETIC GOITER Status: Chronic Priority: Low Current Visit: Yes - Problem List Review Problem List Initiated/Reviewed/Updated: Yes - Plan Plan:: I/P: Acute: Fall -Risk Factors: h/o Alzheimer's, AMS, Fatigue, Weakness, Decreased appetite -H/o frequent falls; last visit 11 days ago -Feels dizziness and feels the "room spinning" at times -BP 138/61; Orthostatics normal in ED --> per ER documentation, patient's PCP had recently decreased BP med; pharmacy verified that current dose is losartan 50 mg/HCTZ 12.5 mg daily -No anemia via labs -Vestibular assessment ordered--> pending -continue PT/OT Scalp Laceration/Contusion -Fell 11 days ago and had laceration to scalp -Recent fall caused re-opening of wound -Unable to staple in ED -Pressure dressing and wound care as needed Lower Back Pain -2/2 Fall -Lumbar Xray in ED--> Severe compression deformity of L3, mild compression deformities T11 and T12 -Consult with ortho Dr. Howe --> per his salon receptionist, she stated that he will be unavailable until 02/01 and this will be the first date that he will be available to evaluate the patient UTI -Risk factor: h/o of Incontinence -No clinical symptoms in ED but is now reporting 'burning" when she urinates -U/A in ED--> Positive Nitrite, Leukocyte Esterase, Many Bacteria -Urine culture--> Gram negative rods -IV Rocephin 1g x3-5 days Altered Mental Status -Risk Factors: h/o Dementia, acute UTI, Decreased appetite, Fall with head injury -Oriented only to person and birthdate -Head CT in ED--> 1.8 cm subdural hygroma and left occipital cephalehematoma -Recommend outpt neurology consult -CM/SW consult for SNF placement Decreased Appetite -Risk factors: Confusion/Dementia -WARRANT CLERK consult ordered to r/o difficulty swallowing --> pending -Per family she is able to eat whole foods, will advance to regular diet --> she is tolerating regular diet during hospitalization Electrolyte Abnormalities -Most likely 2/2 decreased intake -Hypokalemia 3.2 and Hyponatremia 130 --> 3.7 and 132 respectively -Ca 8.4 --> receiving calcium carbonate -IV 1/2 NS at 75 ml/hr -Monitor and supplement as needed Elevated BNP -No h/o heart failure, no pedal edema -Presented with Chest Pain in ED -BNP 1247 --> 1205 -EKG--> mild ST elevation, prolonged QRS; ST elevation noted on ECG does not meet criteria for ischemia -Troponin negative -ECHO ordered--> EF 55-60% and otherwise normal -Monitor Chronic: HTN Hypothyroidism with Goiter--> TSH normal range Alzheimer's Disease Frequent Falls Plan: Med Surg inpatient status She remains stable and continues to improve clinically Other orders as indicated above CM/SW for discharge planning--> Most likely D/C to [facility] on 02/01 Routine AM labs PT/OT DVT Prophylaxis: [facility] Prophylaxis: Pepcid Ambulate with assistance Code Status: DNR/DNI; PCP: Dr. Vargas Hassan
[2018-01-29] MEDS: cefTRIAXone 1 GM in Sodium Chloride 0.9% 100 ML IV SCH (12:02)
[2018-01-29] MEDS ORDERED: LORazepam 2 MG/ML SDV IVPUSH PRN (15:37)
[2018-01-29] MEDS ORDERED: Donepezil 10 MG Tab PO ONE (15:37)
[2018-01-29] MEDS: Acetaminophen Soln 650 MG/20.3 ML UD Cup PO PRN (17:02)
[2018-01-29] MEDS: Hypromellose 0.5% Ophth Soln 15 ML Bottle EYEBOTH SCH (20:26)
[2018-01-30] MEDS: hydrALAZINE 20 MG/ML SDV IVPUSH PRN ×3 (01:25→23:27)
[2018-01-30] MEDS: Calcium Carbonate 600 MG Tab PO SCH ×2 (07:22→16:07)
[2018-01-30] MEDS: Levothyroxine 50 MCG Tab PO SCH ×2 (07:22→08:01)
[2018-01-30] MEDS: Losartan 25 MG Tab PO SCH (08:00)
[2018-01-30] MEDS: Famotidine 20 MG Tab PO SCH ×3 (08:00→20:06)
[2018-01-30] MEDS: Hypromellose 0.5% Ophth Soln 15 ML Bottle EYEBOTH SCH ×3 (08:01→20:05)
[2018-01-30] MEDS: Hydrochlorothiazide 12.5 MG Cap PO SCH (08:01)
[2018-01-30] MEDS: Donepezil 10 MG Tab PO SCH (08:01)
[2018-01-30] MEDS: Sodium Chloride 0.45% 1,000 ML IV SCH (08:39)
--- NOTE | 2018-01-30 09:39 | PCM.PN ---
- General Info Date of Service: 01/30/18 Subjective Update: Patient is feeling better, and will be treated for a UTI with Rocephin; Keflex will be provided at [place]. Functional Status: Reports: Pain Controlled, Tolerating Diet, Ambulating, Urinating - Review of Systems General: Reports: No Symptoms HEENT: Reports: No Symptoms Pulmonary: Reports: No Symptoms Cardiovascular: Reports: No Symptoms Gastrointestinal: Reports: No Symptoms Genitourinary: Reports: No Symptoms Musculoskeletal: Reports: No Symptoms Skin: Reports: No Symptoms Neurological: Reports: No Symptoms Psychiatric: Reports: No Symptoms - Patient Data Vitals - Most Recent: Last Vital Signs Temp 37.0 C 01/30/18 07:11 Pulse 78 01/30/18 07:11 Resp 16 01/30/18 07:11 BP 133/60 01/30/18 08:00 Pulse Ox 98 01/30/18 08:00 Orthostatic Blood Pressure [ 186/68 Standing] Orthostatic Blood Pressure [ 184/70 Sitting] Orthostatic Blood Pressure [ 184/62 Supine] Weight - Most Recent: 57.924 kg I&O - Last 24 Hours: Intake & Output 01/29/18 01/30/18 01/30/18 22:59 06:59 14:59 Intake Total 1520 1268 Output Total 1050 1050 200 Balance 470 218 -200 Lab Results Last 24 Hours: Laboratory Results - last 24 hr 01/30/18 01/30/18 01/30/18 Range/Units 06:33 06:33 06:33 WBC 4.69 (3.98-10.04) K/mm3 RBC 3.56 L (3.98-5.22) M/mm3 Hgb 11.0 L (11.2-15.7) gm/L Hct 33.1 L (34.1-44.9) % MCV 93.0 (79.4-94.8) fl MCH 30.9 (25.6-32.2) pg MCHC 33.2 (32.2-35.5) g/dl RDW Std Deviation 45.2 (36.4-46.3) fL Plt Count 317 (182-369) K/mm3 MPV 8.6 L (9.4-12.3) fl Neut % (Auto) 66.6 (34.0-71.1) % Lymph % (Auto) 21.1 (19.3-51.7) % [place] % (Auto) 8.5 (4.7-12.5) % Eos % (Auto) 3.2 (0.7-5.8) Baso % (Auto) 0.6 (0.1-1.2) % Neut # (Auto) 3.12 (1.56-6.13) K/mm3 Lymph # (Auto) 0.99 L (1.18-3.74) K/mm3 [place] # (Auto) 0.40 H (0.24-0.36) K/mm3 Eos # (Auto) 0.15 (0.04-0.36) K/mm3 Baso # (Auto) 0.03 (0.01-0.08) K/mm3 Sodium 132 L (136-145) mEq/L Potassium 3.5 (3.5-5.1) mEq/L Chloride 100 (98-107) mEq/L Carbon Dioxide 25 (21-32) mEq/L Anion Gap 10.5 (5-15) BUN 6 L (7-18) mg/dL Creatinine 0.5 L (0.55-1.02) mg/dL Est Cr Clr Drug Dosing 72.32 mL/min Estimated GFR (MDRD) > 60 (>60) mL/min BUN/Creatinine Ratio 12.0 L (14-18) Glucose 95 (83-115) mg/dL Calcium 8.4 L (8.5-10.1) mg/dL Magnesium 2.0 (1.8-2.4) mg/dl NT-Pro-B Natriuret Pep 791 H (0-450) pg/mL Med Orders - Current: Current Medications Acetaminophen (Tylenol) 650 mg PO Q4H PRN PRN Reason: Pain/Fever Last Admin: 01/29/18 17:02 Dose: 650 mg Artificial Tears (Isopto Tears 0.5% Ophth Soln) 0 ml EYEBOTH BID [facility] Last Admin: 01/30/18 08:01 Dose: 1 drop Bisacodyl (Dulcolax) 5 mg PO DAILY PRN PRN Reason: Constipation Calcium Carbonate/Glycine (Calcium Carbonate) 600 mg PO BIDMEALS [facility] Last Admin: 01/30/18 07:22 Dose: 600 mg Docusate Sodium (Colace) 100 mg PO BID PRN PRN Reason: Constipation Donepezil HCl (Aricept) 10 mg PO DAILY [facility] Last Admin: 01/30/18 08:01 Dose: 10 mg Famotidine (Pepcid) 20 mg PO BID [facility] Last Admin: 01/30/18 08:00 Dose: 20 mg Hydralazine HCl (Apresoline) 20 mg IVPUSH Q6HR PRN PRN Reason: Hypertension Last Admin: 01/30/18 01:25 Dose: 20 mg Hydrochlorothiazide (Hydrochlorothiazide) 12.5 mg PO DAILY [facility] Last Admin: 01/30/18 08:01 Dose: 12.5 mg Hydromorphone HCl (Dilaudid) 0.25 mg IVPUSH Q2H PRN PRN Reason: Pain (severe 7-10) Sodium Chloride (Sodium Chloride 0.45%) 1,000 mls @ 75 mls/hr IV ASDIRECTED [facility] Last Admin: 01/30/18 08:39 Dose: 75 mls/hr Promethazine HCl 6.25 mg/ (Sodium Chloride) 50.25 mls @ 100 mls/hr IV Q6H PRN PRN Reason: Nausea/Vomiting Ceftriaxone Sodium 1 gm/ (Sodium Chloride) 100 mls @ 200 mls/hr IV Q24H [facility] Last Admin: 01/29/18 12:02 Dose: 200 mls/hr Levothyroxine Sodium (Synthroid) 50 mcg PO DAILY [facility] Last Admin: 01/30/18 08:01 Dose: Not Given Lorazepam (Ativan) 0.5 mg IVPUSH Q6H PRN PRN Reason: Anxiety Losartan Potassium (Cozaar) 50 mg PO DAILY [facility] Last Admin: 01/30/18 08:00 Dose: 50 mg Magnesium Hydroxide (Milk Of Magnesia) 30 ml PO Q12H PRN PRN Reason: Constipation Naproxen (Naprosyn) 250 mg PO Q12H PRN PRN Reason: Pain Oxycodone/Acetaminophen (Percocet 325-5 Mg) 0.5 tab PO Q4H PRN PRN Reason: Pain (moderate 4-6) Last Admin: 01/28/18 22:05 Dose: 0.5 tab Polyethylene Glycol (Miralax) 17 gm PO DAILY PRN PRN Reason: Constipation Promethazine HCl (Phenergan) 25 mg PO Q6H PRN PRN Reason: Nausea/Vomiting Senna/Docusate Sodium (Senna Plus) 1 tab PO BID PRN PRN Reason: Constipation Sodium Chloride (Saline Flush) 10 ml FLUSH ASDIRECTED PRN PRN Reason: Keep Vein Open Last Admin: 01/28/18 00:15 Dose: 10 ml Temazepam (Restoril) 7.5 mg PO BEDTIME PRN PRN Reason: Insomnia Last Admin: 01/28/18 22:05 Dose: 7.5 mg Discontinued Medications Acetaminophen (Tylenol) 650 mg PO Q4H PRN PRN Reason: Pain (Mild 1-3)/fever Ceftriaxone Sodium (Rocephin) 1 gm IVPUSH ONETIME ONE Stop: 01/28/18 08:46 Last Admin: 01/28/18 12:45 Dose: Not Given Donepezil HCl (Aricept) 10 mg PO ONETIME ONE Stop: 01/29/18 15:38 Last Admin: 01/29/18 16:57 Dose: 10 mg Famotidine (Pepcid) 20 mg IVPUSH BID [facility] Last Admin: 01/28/18 12:45 Dose: Not Given Ceftriaxone Sodium 1 gm/ (Sodium Chloride) 100 mls @ 200 mls/hr IV DAILY [facility] Ceftriaxone Sodium 1 gm/ (Sodium Chloride) 100 mls @ 200 mls/hr IV DAILY [facility] Last Admin: 01/28/18 12:45 Dose: Not Given Potassium Chloride 10 meq/ (Premix) 100 mls @ 100 mls/hr IV Q1H [facility] Stop: 01/28/18 13:14 Last Admin: 01/28/18 15:14 Dose: Not Given Potassium Chloride 10 meq/ (Premix) 100 mls @ 100 mls/hr IV Q1H [facility] Stop: 01/28/18 17:14 Last Admin: 01/28/18 16:21 Dose: 100 mls/hr Lidocaine/Epinephrine (Xylocaine 1% With Epinephrine 1:100,000) 20 ml INJECT ONETIME ONE Stop: 01/27/18 23:01 Last Admin: 01/27/18 23:09 Dose: 20 ml Losartan/Hydrochlorothiazide 1 Tab 0 each PO DAILY [facility] Last Admin: 01/28/18 12:45 Dose: Not Given - Exam Quality Assessment: Supplemental Oxygen, DVT Prophylaxis General: Alert, Oriented, Cooperative, No Acute Distress HEENT: Pupils Equal, Pupils Reactive, EOMI Neck: Trachea Midline, No JVD Lungs: Normal Respiratory Effort Cardiovascular: Regular Rate, Regular Rhythm GI/Abdominal Exam: Normal Bowel Sounds, Soft, Non-Tender, No Organomegaly, No Distention (Female) Exam: Deferred Back Exam: Normal Inspection, Full Range of Motion Extremities: Normal Inspection, Non-Tender, Normal Capillary Refill Skin: Warm Neurological: No New Focal Deficit, Cranial Nerves Intact Psy/Mental Status: Alert, Normal Affect, Normal Mood - Problem List Review Problem List Initiated/Reviewed/Updated: Yes - My Orders Last 24 Hours: My Active Orders 01/29/18 15:37 LORazepam [Ativan] 0.5 mg IVPUSH Q6H PRN 01/30/18 09:00 Donepezil [Aricept] 10 mg PO DAILY - Plan Plan:: I/P: Acute: Fall -Risk Factors: h/o Alzheimer's, AMS, Fatigue, Weakness, Decreased appetite -H/o frequent falls; last visit 11 days ago -Feels dizziness and feels the "room spinning" at times -BP 138/61; Orthostatics normal in ED --> per ER documentation, patient's PCP had recently decreased BP med; pharmacy verified that current dose is losartan 50 mg/HCTZ 12.5 mg daily -No anemia via labs -Vestibular assessment ordered--> pending -continue PT/OT Scalp Laceration/Contusion -Fell 11 days ago and had laceration to scalp -Recent fall caused re-opening of wound -Unable to staple in ED -Pressure dressing and wound care as needed Lower Back Pain -2/2 Fall -Lumbar Xray in ED--> Severe compression deformity of L3, mild compression deformities T11 and T12 -Consult with ortho Dr. Howe --> per his oil filters inspector, she stated that he will be unavailable until 02/01 and this will be the first date that he will be available to evaluate the patient UTI -Risk factor: h/o of Incontinence -No clinical symptoms in ED but is now reporting 'burning" when she urinates -U/A in ED--> Positive Nitrite, Leukocyte Esterase, Many Bacteria -Urine culture--> Gram negative rods -IV Rocephin 1g x3-5 days Altered Mental Status -Risk Factors: h/o Dementia, acute UTI, Decreased appetite, Fall with head injury -Oriented only to person and birthdate -Head CT in ED--> 1.8 cm subdural hygroma and left occipital cephalehematoma -Recommend outpt neurology consult -CM/SW consult for SNF placement Decreased Appetite -Risk factors: Confusion/Dementia -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 HELPER consult ordered to r/o difficulty swallowing --> pending -Per family she is able to eat whole foods, will advance to regular diet --> she is tolerating regular diet during hospitalization Electrolyte Abnormalities -Most likely 2/2 decreased intake -Hypokalemia 3.2 and Hyponatremia 130 --> 3.7 and 132 respectively -Ca 8.4 --> receiving calcium carbonate -IV 1/2 NS at 75 ml/hr -Monitor and supplement as needed Elevated BNP -No h/o heart failure, no pedal edema -Presented with Chest Pain in ED -BNP 1247 --> 1205 -EKG--> mild ST elevation, prolonged QRS; ST elevation noted on ECG does not meet criteria for ischemia -Troponin negative -ECHO ordered--> EF 55-60% and otherwise normal -Monitor Chronic: HTN Hypothyroidism with Goiter--> TSH normal range Alzheimer's Disease Frequent Falls Plan: Med Surg inpatient status She remains stable and continues to improve clinically Other orders as indicated above CM/SW for discharge planning--> Most likely D/C to [facility] on 02/01 Routine AM labs PT/OT DVT Prophylaxis: YAKELIN whitley GI Prophylaxis: Pepcid Ambulate with assistance Code Status: DNR/DNI; PCP: Dr. Vargas Hassan DC expected 02/01/18 to SNF, Rocephin for 48 hours then chg to Keflex
[2018-01-30] MEDS ORDERED: Metoclopramide 10 MG/2 ML SDV IVPUSH PRN (11:54)
[2018-01-30] MEDS: Cephalexin 500 MG Cap PO SCH ×2 (12:02→12:29)
[2018-01-30] MEDS: cefTRIAXone 1 GM in Sodium Chloride 0.9% 100 ML IV SCH (12:02)
[2018-01-30] MEDS: Acetaminophen Soln 650 MG/20.3 ML UD Cup PO PRN (16:07)
[2018-01-30] MEDS: Saccharomyces Boulardii (Probiotic) 250 MG Cap PO SCH ×2 (19:34→20:05)
[2018-01-31] MEDS: hydrALAZINE 20 MG/ML SDV IVPUSH PRN ×3 (05:33→22:19)
[2018-01-31] MEDS: Hypromellose 0.5% Ophth Soln 15 ML Bottle EYEBOTH SCH ×2 (08:14→20:09)
[2018-01-31] MEDS: Losartan 25 MG Tab PO SCH ×2 (08:25→20:09)
[2018-01-31] MEDS: Levothyroxine 50 MCG Tab PO SCH (08:25)
[2018-01-31] MEDS: Calcium Carbonate 600 MG Tab PO SCH ×2 (08:25→16:21)
[2018-01-31] MEDS: Hydrochlorothiazide 12.5 MG Cap PO SCH (08:25)
[2018-01-31] MEDS: Donepezil 10 MG Tab PO SCH (08:25)
[2018-01-31] MEDS: Saccharomyces Boulardii (Probiotic) 250 MG Cap PO SCH (08:26)
[2018-01-31] MEDS: Cephalexin 500 MG Cap PO SCH ×2 (08:26→20:09)
[2018-01-31] MEDS: Famotidine 20 MG Tab PO SCH ×2 (08:26→20:09)
[2018-01-31] MEDS: Sodium Chloride 0.9% 10 ML Syringe FLUSH PRN (08:35)
--- NOTE | 2018-01-31 13:50 | PCM.PN ---
- General Info Date of Service: 01/31/18 Functional Status: Reports: Tolerating Diet, Ambulating, Urinating - Review of Systems General: Reports: No Symptoms HEENT: Reports: No Symptoms Pulmonary: Reports: No Symptoms Cardiovascular: Reports: No Symptoms Gastrointestinal: Reports: No Symptoms Genitourinary: Reports: No Symptoms Musculoskeletal: Reports: No Symptoms Skin: Reports: No Symptoms Neurological: Reports: No Symptoms Psychiatric: Reports: No Symptoms - Patient Data Vitals - Most Recent: Last Vital Signs Temp 36.4 C 01/31/18 11:59 Pulse 79 01/31/18 13:13 Resp 14 01/31/18 11:59 BP 155/46 H 01/31/18 13:13 Pulse Ox 96 01/31/18 13:13 Orthostatic Blood Pressure [ 186/68 Standing] Orthostatic Blood Pressure [ 184/70 Sitting] Orthostatic Blood Pressure [ 184/62 Supine] Weight - Most Recent: 57.017 kg I&O - Last 24 Hours: Intake & Output 01/30/18 01/31/18 01/31/18 22:59 06:59 14:59 Intake Total 1311 400 840 Output Total 1101 350 275 Balance 210 50 565 Lab Results Last 24 Hours: Laboratory Results - last 24 hr 01/31/18 01/31/18 01/31/18 Range/Units 05:58 05:58 08:36 WBC 5.33 (3.98-10.04) K/mm3 RBC 3.69 L (3.98-5.22) M/mm3 Hgb 11.6 (11.2-15.7) gm/L Hct 34.3 (34.1-44.9) % MCV 93.0 (79.4-94.8) fl MCH 31.4 (25.6-32.2) pg MCHC 33.8 (32.2-35.5) g/dl RDW Std Deviation 46.3 (36.4-46.3) fL Plt Count 349 (182-369) K/mm3 MPV 8.8 L (9.4-12.3) fl Neut % (Auto) 76.9 H (34.0-71.1) % Lymph % (Auto) 12.8 L (19.3-51.7) % [place] % (Auto) 8.4 (4.7-12.5) % Eos % (Auto) 1.3 (0.7-5.8) Baso % (Auto) 0.4 (0.1-1.2) % Neut # (Auto) 4.10 (1.56-6.13) K/mm3 Lymph # (Auto) 0.68 L (1.18-3.74) K/mm3 [place] # (Auto) 0.45 H (0.24-0.36) K/mm3 Eos # (Auto) 0.07 (0.04-0.36) K/mm3 Baso # (Auto) 0.02 (0.01-0.08) K/mm3 Sodium 130 L (136-145) mEq/L Potassium 3.5 (3.5-5.1) mEq/L Chloride 96 L (98-107) mEq/L Carbon Dioxide 25 (21-32) mEq/L Anion Gap 12.5 (5-15) BUN 4 L (7-18) mg/dL Creatinine 0.6 (0.55-1.02) mg/dL Est Cr Clr Drug Dosing 60.27 mL/min Estimated GFR (MDRD) > 60 (>60) mL/min BUN/Creatinine Ratio 6.7 L (14-18) Glucose 98 (83-115) mg/dL Calcium 9.1 (8.5-10.1) mg/dL Magnesium 2.0 (1.8-2.4) mg/dl NT-Pro-B Natriuret Pep 928 H (0-450) pg/mL [facility] Results Last 24 Hours: Microbiology 01/27/18 22:55 Urine Culture - Final Urine, Catheterized Escherichia Coli Med Orders - Current: Current Medications Acetaminophen (Tylenol) 650 mg PO Q4H PRN PRN Reason: Pain/Fever Last Admin: 01/30/18 16:07 Dose: 650 mg Artificial Tears (Isopto Tears 0.5% Ophth Soln) 0 ml EYEBOTH BID [facility] Last Admin: 01/31/18 08:14 Dose: 1 drop Bisacodyl (Dulcolax) 5 mg PO DAILY PRN PRN Reason: Constipation Calcium Carbonate/Glycine (Calcium Carbonate) 600 mg PO BIDMEALS [facility] Last Admin: 01/31/18 08:25 Dose: 600 mg Cephalexin (Keflex) 500 mg PO Q12H [facility] Last Admin: 01/31/18 08:26 Dose: 500 mg Docusate Sodium (Colace) 100 mg PO BID PRN PRN Reason: Constipation Donepezil HCl (Aricept) 10 mg PO DAILY [facility] Last Admin: 01/31/18 08:25 Dose: 10 mg Famotidine (Pepcid) 20 mg PO BID [facility] Last Admin: 01/31/18 08:26 Dose: 20 mg Hydralazine HCl (Apresoline) 20 mg IVPUSH Q6HR PRN PRN Reason: Hypertension Last Admin: 01/31/18 12:28 Dose: 20 mg Hydrochlorothiazide (Hydrochlorothiazide) 12.5 mg PO DAILY [facility] Last Admin: 01/31/18 08:25 Dose: 12.5 mg Hydromorphone HCl (Dilaudid) 0.25 mg IVPUSH Q2H PRN PRN Reason: Pain (severe 7-10) Promethazine HCl 6.25 mg/ (Sodium Chloride) 50.25 mls @ 100 mls/hr IV Q6H PRN PRN Reason: Nausea/Vomiting Levothyroxine Sodium (Synthroid) 50 mcg PO 0700 [facility] Last Admin: 01/31/18 08:25 Dose: 50 mcg Lorazepam (Ativan) 0.5 mg IVPUSH Q6H PRN PRN Reason: Anxiety Losartan Potassium (Cozaar) 50 mg PO DAILY [facility] Last Admin: 01/31/18 08:25 Dose: 50 mg Magnesium Hydroxide (Milk Of Magnesia) 30 ml PO Q12H PRN PRN Reason: Constipation Metoclopramide HCl (Reglan) 5 mg IVPUSH Q6H PRN PRN Reason: Nausea Last Admin: 01/30/18 12:02 Dose: 5 mg Naproxen (Naprosyn) 250 mg PO Q12H PRN PRN Reason: Pain Polyethylene Glycol (Miralax) 17 gm PO DAILY PRN PRN Reason: Constipation Promethazine HCl (Phenergan) 25 mg PO Q6H PRN PRN Reason: Nausea/Vomiting Saccharomyces Boulardii (Florastor) 500 mg PO DAILY [facility] Last Admin: 01/31/18 08:26 Dose: 500 mg Senna/Docusate Sodium (Senna Plus) 1 tab PO BID PRN PRN Reason: Constipation Sodium Chloride (Saline Flush) 10 ml FLUSH ASDIRECTED PRN PRN Reason: Keep Vein Open Last Admin: 01/31/18 08:35 Dose: 10 ml Temazepam (Restoril) 7.5 mg PO BEDTIME PRN PRN Reason: Insomnia Last Admin: 01/28/18 22:05 Dose: 7.5 mg Discontinued Medications Acetaminophen (Tylenol) 650 mg PO Q4H PRN PRN Reason: Pain (Mild 1-3)/fever Ceftriaxone Sodium (Rocephin) 1 gm IVPUSH ONETIME ONE Stop: 01/28/18 08:46 Last Admin: 01/28/18 12:45 Dose: Not Given Cephalexin (Keflex) 500 mg PO Q12H [facility] Last Admin: 01/30/18 12:29 Dose: Not Given Donepezil HCl (Aricept) 10 mg PO ONETIME ONE Stop: 01/29/18 15:38 Last Admin: 01/29/18 16:57 Dose: 10 mg Famotidine (Pepcid) 20 mg IVPUSH BID [facility] Last Admin: 01/28/18 12:45 Dose: Not Given Sodium Chloride (Sodium Chloride 0.45%) 1,000 mls @ 75 mls/hr IV ASDIRECTED [facility] Last Admin: 01/30/18 08:39 Dose: 75 mls/hr Ceftriaxone Sodium 1 gm/ (Sodium Chloride) 100 mls @ 200 mls/hr IV DAILY [facility] Ceftriaxone Sodium 1 gm/ (Sodium Chloride) 100 mls @ 200 mls/hr IV DAILY [facility] Last Admin: 01/28/18 12:45 Dose: Not Given Potassium Chloride 10 meq/ (Premix) 100 mls @ 100 mls/hr IV Q1H [facility] Stop: 01/28/18 13:14 Last Admin: 01/28/18 15:14 Dose: Not Given Ceftriaxone Sodium 1 gm/ (Sodium Chloride) 100 mls @ 200 mls/hr IV Q24H [facility] Stop: 01/30/18 13:00 Last Admin: 01/30/18 12:02 Dose: 200 mls/hr Potassium Chloride 10 meq/ (Premix) 100 mls @ 100 mls/hr IV Q1H [facility] Stop: 01/28/18 17:14 Last Admin: 01/28/18 16:21 Dose: 100 mls/hr Levothyroxine Sodium (Synthroid) 50 mcg PO DAILY [facility] Last Admin: 01/30/18 08:01 Dose: Not Given Lidocaine/Epinephrine (Xylocaine 1% With Epinephrine 1:100,000) 20 ml INJECT ONETIME ONE Stop: 01/27/18 23:01 Last Admin: 01/27/18 23:09 Dose: 20 ml Oxycodone/Acetaminophen (Percocet 325-5 Mg) 0.5 tab PO Q4H PRN PRN Reason: Pain (moderate 4-6) Last Admin: 01/28/18 22:05 Dose: 0.5 tab Losartan/Hydrochlorothiazide 1 Tab 0 each PO DAILY [facility] Last Admin: 01/28/18 12:45 Dose: Not Given - Exam Quality Assessment: Supplemental Oxygen, DVT Prophylaxis General: Alert, Oriented, Cooperative, No Acute Distress HEENT: Pupils Equal, Pupils Reactive, EOMI Neck: Trachea Midline, No JVD Lungs: Normal Respiratory Effort, Decreased Breath Sounds Cardiovascular: Regular Rate, Regular Rhythm GI/Abdominal Exam: Normal Bowel Sounds, Soft, Non-Tender, No Organomegaly, No Distention (Female) Exam: Deferred Back Exam: Normal Inspection Extremities: Normal Inspection, Normal Range of Motion, Non-Tender Skin: Warm Neurological: No New Focal Deficit, Normal Gait, Normal Speech Psy/Mental Status: Alert, Normal Affect, Normal Mood - Problem List Review Problem List Initiated/Reviewed/Updated: Yes - My Orders Last 24 Hours: My Active Orders 01/30/18 21:00 Saccharomyces Boulardii [Florastor] 500 mg PO DAILY 01/31/18 09:00 Cephalexin [Keflex] 500 mg PO Q12H - Plan Plan:: I/P: Acute: Fall -Risk Factors: h/o Alzheimer's, AMS, Fatigue, Weakness, Decreased appetite -H/o frequent falls; last visit 11 days ago -Feels dizziness and feels the "room spinning" at times -BP 138/61; Orthostatics normal in ED --> per ER documentation, patient's PCP had recently decreased BP med; pharmacy verified that current dose is losartan 50 mg/HCTZ 12.5 mg daily -No anemia via labs -Vestibular assessment ordered--> pending -continue PT/OT Scalp Laceration/Contusion -Fell 11 days ago and had laceration to scalp -Recent fall caused re-opening of wound -Unable to staple in ED -Pressure dressing and wound care as needed Lower Back Pain -2/2 Fall -Lumbar Xray in ED--> Severe compression deformity of L3, mild compression deformities T11 and T12 -Consult with ortho Dr. Howe --> per his client relation specialist, she stated that he will be unavailable until 02/01 and this will be the first date that he will be available to evaluate the patient UTI -Risk factor: h/o of Incontinence -No clinical symptoms in ED but is now reporting 'burning" when she urinates -U/A in ED--> Positive Nitrite, Leukocyte Esterase, Many Bacteria -Urine culture--> Gram negative rods -IV Rocephin 1g x3-5 days; started keflex, continue for 5 days at DC Altered Mental Status-baseline -Risk Factors: h/o Dementia, acute UTI, Decreased appetite, Fall with head injury -Oriented only to person and birthdate -Head CT in ED--> 1.8 cm subdural hygroma and left occipital cephalehematoma -Recommend outpt neurology consult -CM/SW consult for SNF placement Decreased Appetite -Risk factors: Confusion/Dementia -COMMERCIAL LOAN UNDERWRITER consult ordered to r/o difficulty swallowing --> pending -Per family she is able to eat whole foods, will advance to regular diet --> she is tolerating regular diet during hospitalization Electrolyte Abnormalities -Most likely 2/2 decreased intake -Hypokalemia 3.2 and Hyponatremia 130 --> 3.7 and 132 respectively -Ca 8.4 --> receiving calcium carbonate -IV 1/2 NS at 75 ml/hr -Monitor and supplement as needed Elevated BNP -No h/o heart failure, no pedal edema -Presented with Chest Pain in ED -BNP 1247 --> 1205 -EKG--> mild ST elevation, prolonged QRS; ST elevation noted on ECG does not meet criteria for ischemia -Troponin negative -ECHO ordered--> EF 55-60% and otherwise normal -Monitor Chronic: HTN Hypothyroidism with Goiter--> TSH normal range Alzheimer's Disease Frequent Falls Plan: Med Surg inpatient status She remains stable and continues to improve clinically Other orders as indicated above CM/SW for discharge planning--> Most likely D/C to [facility] on 02/01 Routine AM labs PT/OT DVT Prophylaxis: YAKELIN whitley GI Prophylaxis: Pepcid Ambulate with assistance Code Status: DNR/DNI; PCP: Dr. Vargas Hassan DC expected 02/01/18 to SNF, Rocephin for 48 hours then chg to Keflex; keflex for 5 days at DC
[2018-01-31] MEDS ORDERED: Losartan 25 MG Tab PO SCH (18:15)
[2018-01-31] MEDS: Acetaminophen Soln 650 MG/20.3 ML UD Cup PO PRN (19:51)
[2018-02-01] MEDS: Calcium Carbonate 600 MG Tab PO SCH (06:17)
[2018-02-01] MEDS: Levothyroxine 50 MCG Tab PO SCH (06:17)
--- NOTE | 2018-02-01 06:33 | PCM.DCSUM1 ---
Discharge Summary - Hospital Course HPI Initial Comments: This is a 82 yo female with past medical hx/o HTN, hyperthyroid, Alzheimer's, h/ o fall 11 days ago with laceration repair who comes in for head injury with re- opening of previous laceration with fall. She currently has pain in her lower back/buttocks area after the fall. Difficult to get history due to Alzheimer's, but she complains of chest pain, weakness, fatigue, difficulty walking, decreased appetite, incontinence. She reports no fever, chills, headache, nausea , vomiting, diarrhea, shortness of breath, or other GI/ complaints. Her initial workup in the ED showed a CBC remarkable for RBC 3.41, Hgb 10.5, Hct 31.3. Her chemistry is remarkable for Na 130, K 3.1, Cl 95. UA is impressive for UTI. EKG showed mild ST elevation, prolonged QRS. Head CT demonstrates 1.8 cm right frontoparietal extra-axial fluid collection of CSF likely consistent with a subdural hygroma and left occipital cephalehematoma. She is subsequently admitted to the medical floor. She is a DNR/DNI. Her PCP is Dr. Vargas Hassan. - Discharge Data Discharge Date: 02/01/18 (Admit date: 01/28/18) Discharge Disposition: DC/Tfer to SNF 03 Condition: Good - Patient Summary/Data Consults: Consultations 01/28/18 01:25 Consult to Case Management [CONS] Routine Consult to Physical Therapy [PT Evaluation and Treatment] [CONS] Routine Consult to Pit Shovel Operator [CONS] Routine 01/28/18 01:26 Consult to Occupational Therapy [OT Evaluation and Treatment] [CONS] Routine 01/28/18 08:38 OIL DISTRIBUTOR Evaluation and Treatment [CONS] Routine 01/28/18 12:30 PT Evaluation and Treatment [CONS] Routine 01/28/18 13:05 Consult to Physician [CONS] Routine Hospital Course: I/P: Acute: Fall -Risk Factors: h/o Alzheimer's, AMS, Fatigue, Weakness, Decreased appetite -H/o frequent falls; last visit 11 days ago -Feels dizziness and feels the "room spinning" at times -BP 138/61; Orthostatics normal in ED --> per ER documentation, patient's PCP had recently decreased BP med; pharmacy verified that current dose is losartan 50 mg/HCTZ 12.5 mg daily -No anemia via labs -Vestibular assessment ordered--> pending -continue PT/OT Scalp Laceration/Contusion -Fell 11 days ago and had laceration to scalp -Recent fall caused re-opening of wound -Unable to staple in ED -Pressure dressing and wound care as needed Lower Back Pain -2/2 Fall -Lumbar Xray in ED--> Severe compression deformity of L3, mild compression deformities T11 and T12 -Consult with ortho Dr. Howe --> per his unit receptionist, she stated that he will be unavailable until 02/01 and this will be the first date that he will be available to evaluate the patient UTI -Risk factor: h/o of Incontinence -No clinical symptoms in ED but is now reporting 'burning" when she urinates -U/A in ED--> Positive Nitrite, Leukocyte Esterase, Many Bacteria -Urine culture--> Gram negative rods -IV Rocephin 1g x3-5 days; started keflex, continue for 5 days at DC Altered Mental Status-baseline -Risk Factors: h/o Dementia, acute UTI, Decreased appetite, Fall with head injury -Oriented only to person and birthdate -Head CT in ED--> 1.8 cm subdural hygroma and left occipital cephalehematoma -Recommend outpt neurology consult -CM/SW consult for SNF placement Decreased Appetite -Risk factors: Confusion/Dementia -OIL DISTRIBUTOR consult ordered to r/o difficulty swallowing --> pending -Per family she is able to eat whole foods, will advance to regular diet --> she is tolerating regular diet during hospitalization Electrolyte Abnormalities -Most likely 2/2 decreased intake -Hypokalemia 3.2 and Hyponatremia 130 --> 3.7 and 132 respectively -Ca 8.4 --> receiving calcium carbonate -IV 1/2 NS at 75 ml/hr -Monitor and supplement as needed Elevated BNP -No h/o heart failure, no pedal edema -Presented with Chest Pain in ED -BNP 1247 --> 1205 -EKG--> mild ST elevation, prolonged QRS; ST elevation noted on ECG does not meet criteria for ischemia -Troponin negative -ECHO ordered--> EF 55-60% and otherwise normal -Monitor Chronic: HTN Hypothyroidism with Goiter--> TSH normal range Alzheimer's Disease Frequent Falls Plan: Med Surg inpatient status She remains stable and continues to improve clinically Other orders as indicated above CM/SW for discharge planning--> Most likely D/C to [facility] on 02/01 Routine AM labs PT/OT DVT Prophylaxis: YAKELIN [facility] Prophylaxis: Pepcid Ambulate with assistance Code Status: DNR/DNI; PCP: Dr. Vargas Hassan DC expected 02/01/18 to SNF, Rocephin for 48 hours then chg to Keflex; keflex for 5 days at DC - Patient Instructions Diet: Regular Diet as Tolerated Activity: As Tolerated Driving: Do Not Drive Notify Provider of: Fever, Increased Pain, Nausea and/or Vomiting - Discharge Plan Home Medications: Home Meds Levothyroxine [Synthroid] 50 mcg PO DAILY 10/04/17 [History] Calcium Carbonate 600 mg PO BIDMEALS 01/28/18 [History] Losartan/Hydrochlorothiazide [Losartan-HCTZ 50-12.5 MG] 1 tab PO DAILY 01/28/18 [History] Naproxen Sodium 220 mg PO Q12H PRN 01/28/18 [History] Carboxymethylcellulose Sodium [Refresh Tears] 1 drop EYEBOTH BID 01/29/18 [ History] Referrals: Vargas Hassan MD [Primary Care Provider] - - Discharge Summary/Plan Comment DC Time >30 min.: Yes (45 mins ) - General Info Date of Service: 02/01/18 Admission Dx/Problem (Free Text: Admission Diagnosis/Problem Admission Diagnosis/Problem Falls - Patient Data Vitals - Most Recent: Last Vital Signs Temp 99.0 F 02/01/18 04:14 Pulse 73 02/01/18 04:14 Resp 16 02/01/18 04:14 BP 150/74 H 02/01/18 04:10 Pulse Ox 98 02/01/18 04:14 Orthostatic Blood Pressure [ 186/68 Standing] Orthostatic Blood Pressure [ 184/70 Sitting] Orthostatic Blood Pressure [ 184/62 Supine] Weight - Most Recent: 127 lb 1.6 oz I&O - Last 24 hours: Intake & Output 01/31/18 01/31/18 02/01/18 14:59 22:59 06:59 Intake Total 940 750 575 Output Total 471 525 750 Balance 464 225 -175 Lab Results - Last 24 hrs: Laboratory Results - last 24 hr 01/31/18 01/31/18 01/31/18 Range/Units 05:58 05:58 08:36 WBC 5.33 (3.98-10.04) K/mm3 RBC 3.69 L (3.98-5.22) M/mm3 Hgb 11.6 (11.2-15.7) gm/L Hct 34.3 (34.1-44.9) % MCV 93.0 (79.4-94.8) fl MCH 31.4 (25.6-32.2) pg MCHC 33.8 (32.2-35.5) g/dl RDW Std Deviation 46.3 (36.4-46.3) fL Plt Count 349 (182-369) K/mm3 MPV 8.8 L (9.4-12.3) fl Neut % (Auto) 76.9 H (34.0-71.1) % Lymph % (Auto) 12.8 L (19.3-51.7) % Chaves % (Auto) 8.4 (4.7-12.5) % Eos % (Auto) 1.3 (0.7-5.8) Baso % (Auto) 0.4 (0.1-1.2) % Neut # (Auto) 4.10 (1.56-6.13) K/mm3 Lymph # (Auto) 0.68 L (1.18-3.74) K/mm3 Chaves # (Auto) 0.45 H (0.24-0.36) K/mm3 Eos # (Auto) 0.07 (0.04-0.36) K/mm3 Baso # (Auto) 0.02 (0.01-0.08) K/mm3 Sodium 130 L (136-145) mEq/L Potassium 3.5 (3.5-5.1) mEq/L Chloride 96 L (98-107) mEq/L Carbon Dioxide 25 (21-32) mEq/L Anion Gap 12.5 (5-15) BUN 4 L (7-18) mg/dL Creatinine 0.6 (0.55-1.02) mg/dL Est Cr Clr Drug Dosing 60.27 mL/min Estimated GFR (MDRD) > 60 (>60) mL/min BUN/Creatinine Ratio 6.7 L (14-18) Glucose 98 (83-115) mg/dL Calcium 9.1 (8.5-10.1) mg/dL Magnesium 2.0 (1.8-2.4) mg/dl NT-Pro-B Natriuret Pep 928 H (0-450) pg/mL Med Orders - Current: Current Medications Acetaminophen (Tylenol) 650 mg PO Q4H PRN PRN Reason: Pain/Fever Last Admin: 01/31/18 19:51 Dose: 650 mg Artificial Tears (Isopto Tears 0.5% Ophth Soln) 0 ml EYEBOTH BID [facility] Last Admin: 01/31/18 20:09 Dose: 1 drop Bisacodyl (Dulcolax) 5 mg PO DAILY PRN PRN Reason: Constipation Calcium Carbonate/Glycine (Calcium Carbonate) 600 mg PO BIDMEALS [facility] Last Admin: 02/01/18 06:17 Dose: 600 mg Cephalexin (Keflex) 500 mg PO Q12H [facility] Last Admin: 01/31/18 20:09 Dose: 500 mg Docusate Sodium (Colace) 100 mg PO BID PRN PRN Reason: Constipation Donepezil HCl (Aricept) 5 mg PO DAILY [facility] Famotidine (Pepcid) 20 mg PO BID [facility] Last Admin: 01/31/18 20:09 Dose: 20 mg Hydralazine HCl (Apresoline) 20 mg IVPUSH Q6HR PRN PRN Reason: Hypertension Last Admin: 01/31/18 22:19 Dose: 20 mg Hydrochlorothiazide (Hydrochlorothiazide) 12.5 mg PO DAILY [facility] Last Admin: 01/31/18 08:25 Dose: 12.5 mg Hydromorphone HCl (Dilaudid) 0.25 mg IVPUSH Q2H PRN PRN Reason: Pain (severe 7-10) Promethazine HCl 6.25 mg/ (Sodium Chloride) 50.25 mls @ 100 mls/hr IV Q6H PRN PRN Reason: Nausea/Vomiting Levothyroxine Sodium (Synthroid) 50 mcg PO 0700 [facility] Last Admin: 02/01/18 06:17 Dose: 50 mcg Lorazepam (Ativan) 0.5 mg IVPUSH Q6H PRN PRN Reason: Anxiety Losartan Potassium (Cozaar) 50 mg PO BID [facility] Last Admin: 01/31/18 20:09 Dose: 50 mg Magnesium Hydroxide (Milk Of Magnesia) 30 ml PO Q12H PRN PRN Reason: Constipation Metoclopramide HCl (Reglan) 5 mg IVPUSH Q6H PRN PRN Reason: Nausea Last Admin: 01/30/18 12:02 Dose: 5 mg Naproxen (Naprosyn) 250 mg PO Q12H PRN PRN Reason: Pain Polyethylene Glycol (Miralax) 17 gm PO DAILY PRN PRN Reason: Constipation Promethazine HCl (Phenergan) 25 mg PO Q6H PRN PRN Reason: Nausea/Vomiting Saccharomyces Boulardii (Florastor) 500 mg PO DAILY [facility] Last Admin: 01/31/18 08:26 Dose: 500 mg Senna/Docusate Sodium (Senna Plus) 1 tab PO BID PRN PRN Reason: Constipation Sodium Chloride (Saline Flush) 10 ml FLUSH ASDIRECTED PRN PRN Reason: Keep Vein Open Last Admin: 01/31/18 08:35 Dose: 10 ml Temazepam (Restoril) 7.5 mg PO BEDTIME PRN PRN Reason: Insomnia Last Admin: 01/28/18 22:05 Dose: 7.5 mg Discontinued Medications Acetaminophen (Tylenol) 650 mg PO Q4H PRN PRN Reason: Pain (Mild 1-3)/fever Ceftriaxone Sodium (Rocephin) 1 gm IVPUSH ONETIME ONE Stop: 01/28/18 08:46 Last Admin: 01/28/18 12:45 Dose: Not Given Cephalexin (Keflex) 500 mg PO Q12H [facility] Last Admin: 01/30/18 12:29 Dose: Not Given Donepezil HCl (Aricept) 10 mg PO ONETIME ONE Stop: 01/29/18 15:38 Last Admin: 01/29/18 16:57 Dose: 10 mg Donepezil HCl (Aricept) 10 mg PO DAILY [facility] Last Admin: 01/31/18 08:25 Dose: 10 mg Famotidine (Pepcid) 20 mg IVPUSH BID [facility] Last Admin: 01/28/18 12:45 Dose: Not Given Sodium Chloride (Sodium Chloride 0.45%) 1,000 mls @ 75 mls/hr IV ASDIRECTED [facility] Last Admin: 01/30/18 08:39 Dose: 75 mls/hr Ceftriaxone Sodium 1 gm/ (Sodium Chloride) 100 mls @ 200 mls/hr IV DAILY [facility] Ceftriaxone Sodium 1 gm/ (Sodium Chloride) 100 mls @ 200 mls/hr IV DAILY [facility] Last Admin: 01/28/18 12:45 Dose: Not Given Potassium Chloride 10 meq/ (Premix) 100 mls @ 100 mls/hr IV Q1H [facility] Stop: 01/28/18 13:14 Last Admin: 01/28/18 15:14 Dose: Not Given Ceftriaxone Sodium 1 gm/ (Sodium Chloride) 100 mls @ 200 mls/hr IV Q24H [facility] Stop: 01/30/18 13:00 Last Admin: 01/30/18 12:02 Dose: 200 mls/hr Potassium Chloride 10 meq/ (Premix) 100 mls @ 100 mls/hr IV Q1H [facility] Stop: 01/28/18 17:14 Last Admin: 01/28/18 16:21 Dose: 100 mls/hr Levothyroxine Sodium (Synthroid) 50 mcg PO DAILY [facility] Last Admin: 01/30/18 08:01 Dose: Not Given Lidocaine/Epinephrine (Xylocaine 1% With Epinephrine 1:100,000) 20 ml INJECT ONETIME ONE Stop: 01/27/18 23:01 Last Admin: 01/27/18 23:09 Dose: 20 ml Losartan Potassium (Cozaar) 50 mg PO DAILY [facility] Last Admin: 01/31/18 08:25 Dose: 50 mg Losartan Potassium (Cozaar) 50 mg PO BID [facility] Oxycodone/Acetaminophen (Percocet 325-5 Mg) 0.5 tab PO Q4H PRN PRN Reason: Pain (moderate 4-6) Last Admin: 01/28/18 22:05 Dose: 0.5 tab Losartan/Hydrochlorothiazide 1 Tab 0 each PO DAILY [facility] Last Admin: 01/28/18 12:45 Dose: Not Given
[2018-02-01] MEDS ORDERED: Donepezil 10 MG Tab PO SCH (09:00)
[2018-02-01] MEDS: Hydrochlorothiazide 12.5 MG Cap PO SCH (09:30)
[2018-02-01] MEDS: Saccharomyces Boulardii (Probiotic) 250 MG Cap PO SCH (09:30)
[2018-02-01] MEDS: Cephalexin 500 MG Cap PO SCH (09:30)
[2018-02-01] MEDS: Famotidine 20 MG Tab PO SCH (09:30)
[2018-02-01] MEDS: Losartan 25 MG Tab PO SCH (09:31)
[2018-02-01] MEDS: Hypromellose 0.5% Ophth Soln 15 ML Bottle EYEBOTH SCH (09:33)
--- NOTE | 2018-02-01 11:35 | PCM.DCSUM1 ---
Discharge Summary - Hospital Course HPI Initial Comments: Patient is here for evaluation of a head injury. She reportedly had 3 falls today, almost a 4th time but she was caught. On the third time she did hit the back of her head. She reopened a laceration where she just had the sutures removed yesterday for a fall that she sustained 11 days ago. She has been under some evaluation by her PCP for these frequent falls. It does not sound that the falls have been witnessed. Patient states that she feels dizzy at times, that the room is spinning. Review of systems is very limited due to patient's Alzheimer's. Family is in the room, states that her mental status is stable from where it has been over the past few weeks. Her Alzheimer has been progressing recently. Patient denies any chest pain or dyspnea. Denies any abdominal pain. Denies any dysuria, does have incontinence and wears attends daily. Patient states she does have lower back/sacral pain from where she landed earlier today. Recently had blood pressure medicine decreased by her PCP. Sertraline was also recently stopped. Patient is not a full code, she is DNR. - Discharge Data Discharge Date: 02/01/18 (Admitted 01/28/18) Discharge Disposition: DC/Tfer to SNF 03 Condition: Good - Discharge Diagnosis/Problem(s) (1) Altered mental status SNOMED Code(s): 079429766 ICD Code: R41.82 - ALTERED MENTAL STATUS, UNSPECIFIED Status: Chronic Priority: Medium Current Visit: Yes Qualifiers: Altered mental status type: unspecified Qualified Code(s): R41.82 - Altered mental status, unspecified (2) Dementia SNOMED Code(s): 20721292 ICD Code: F03.90 - UNSPECIFIED DEMENTIA WITHOUT BEHAVIORAL DISTURBANCE Status: Chronic Priority: Medium Current Visit: Yes Qualifiers: Dementia type: Alzheimer's disease Alzheimer's disease onset: unspecified onset Dementia behavioral disturbance: without behavioral disturbance Qualified Code(s): G30.9 - Alzheimer's disease, unspecified; F02.80 - Dementia in other diseases classified elsewhere without behavioral disturbance (3) Frequent falls SNOMED Code(s): 893375675 ICD Code: R29.6 - REPEATED FALLS Status: Acute Priority: High Current Visit: Yes (4) Hypertension SNOMED Code(s): 59270732 ICD Code: I10 - ESSENTIAL (PRIMARY) HYPERTENSION Status: Chronic Priority : Medium Current Visit: Yes Qualifiers: Hypertension type: essential hypertension Qualified Code(s): I10 - Essential (primary) hypertension (5) Hypokalemia SNOMED Code(s): 68347668 ICD Code: E87.6 - HYPOKALEMIA Status: Acute Priority: High Current Visit: Yes (6) Hyponatremia SNOMED Code(s): 79116933 ICD Code: E87.1 - HYPO-OSMOLALITY AND HYPONATREMIA Status: Acute Priority : High Current Visit: Yes (7) Scalp laceration SNOMED Code(s): 578407090 ICD Code: S01.01XA - LACERATION WITHOUT FOREIGN BODY OF SCALP, INITIAL ENCOUNTER Status: Acute Priority: High Current Visit: Yes Qualifiers: Encounter type: subsequent encounter Qualified Code(s): S01.01XD - Laceration without foreign body of scalp, subsequent encounter (8) Contusion of scalp SNOMED Code(s): 05955423 ICD Code: S00.03XA - CONTUSION OF SCALP, INITIAL ENCOUNTER Status: Acute Priority: High Current Visit: Yes Qualifiers: Encounter type: subsequent encounter Qualified Code(s): S00.03XD - Contusion of scalp, subsequent encounter (9) Fall SNOMED Code(s): 1429815, 764251250 ICD Code: W19.XXXA - UNSPECIFIED FALL, INITIAL ENCOUNTER Status: Acute Priority: High Current Visit: Yes Qualifiers: Encounter type: initial encounter Qualified Code(s): W19.XXXA - Unspecified fall, initial encounter (10) Low back strain SNOMED Code(s): 857531254 ICD Code: S39.012A - STRAIN OF MUSCLE, FASCIA AND TENDON OF LOWER BACK, INIT Status: Acute Priority: High Current Visit: Yes Qualifiers: Encounter type: subsequent encounter Qualified Code(s): S39.012D - Strain of muscle, fascia and tendon of lower back, subsequent encounter (11) UTI (urinary tract infection) SNOMED Code(s): 73637617 ICD Code: N39.0 - URINARY TRACT INFECTION, SITE NOT SPECIFIED Status: Acute Priority: High Current Visit: Yes Qualifiers: Urinary tract infection type: acute cystitis Hematuria presence: without hematuria Qualified Code(s): N30.00 - Acute cystitis without hematuria (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 SNOMED Code(s): 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 ICD Code: E07.1 - DYSHORMOGENETIC GOITER Status: Chronic Priority: Low Current Visit: Yes (13) Elevated brain natriuretic peptide (BNP) level SNOMED Code(s): 332856927, 285447088 ICD Code: R79.89 - OTHER SPECIFIED ABNORMAL FINDINGS OF BLOOD CHEMISTRY Status: Acute Priority: High Current Visit: Yes (14) Compression fx, lumbar spine SNOMED Code(s): 673201221 ICD Code: S32.000A - WEDGE COMPRESSION FRACTURE OF UNSP LUMBAR VERTEBRA, INIT Status: Acute Priority: High Current Visit: Yes Qualifiers: Encounter type: initial encounter Lumbar vertebra fracture level: L3 Fracture type: closed Qualified Code(s): S32.030A - Wedge compression fracture of third lumbar vertebra, initial encounter for closed fracture - Patient Summary/Data Operative Procedure(s) Performed: None Complications: None Consults: Consultations 01/28/18 01:25 Consult to Case Management [CONS] Routine Consult to Physical Therapy [PT Evaluation and Treatment] [CONS] Routine Consult to Microbiology Director [CONS] Routine 01/28/18 01:26 Consult to Occupational Therapy [OT Evaluation and Treatment] [CONS] Routine 01/28/18 08:38 SETTLEMENT TECHNICIAN Evaluation and Treatment [CONS] Routine 01/28/18 12:30 PT Evaluation and Treatment [CONS] Routine 01/28/18 13:05 Consult to Physician [CONS] Routine 02/01/18 08:28 Consult to Physical Therapy [PT Evaluation and Treatment] [CONS] Routine Labs Pending at D/C: None Recommended Follow-up Testing/Procedures: Recommend to follow-up with neurology Recommend to follow-up with Dr. Howe for compression fracture if desired Planned Operative Procedure(s) after DC: None Hospital Course: I/P: Acute: Fall -Risk Factors: h/o Alzheimer's, AMS, Fatigue, Weakness, Decreased appetite -H/o frequent falls; last visit 11 days prior to ED visit -Feels dizziness and feels the "room spinning" at times -BP 138/61; Orthostatics normal in ED --> per ER documentation, patient's PCP had recently decreased BP med; pharmacy verified that current dose is losartan 50 mg/HCTZ 12.5 mg daily --> doubled dose of losartan/HCTZ to 100/25 at D/C -No anemia via labs -Vestibular assessment ordered -continue PT/OT Scalp Laceration/Contusion-improving -Fell 11 days ago and had laceration to scalp -Recent fall caused re-opening of wound -Unable to staple in ED -Pressure dressing and wound care as needed Lower Back Pain -2/2 Fall -Lumbar Xray in ED--> Severe compression deformity of L3, mild compression deformities T11 and T12 -Consult with ortho Dr. Howe --> per his retail center receptionist, she stated that he will be unavailable until 02/01 and this will be the first date that he will be available to evaluate the patient --> cancelled per family and POA -MRI today per Dr. Howe -soft spine brace per Dr. Howe UTI-improving -Risk factor: h/o of Incontinence -No clinical symptoms in ED but is now reporting 'burning" when she urinates -U/A in ED--> Positive Nitrite, Leukocyte Esterase, Many Bacteria -Urine culture--> e.coli -IV Rocephin 1g x3-5 days; started keflex, continue for 5 days at DC Altered Mental Status-baseline -Risk Factors: h/o Dementia, acute UTI, Decreased appetite, Fall with head injury -Oriented only to person and birthdate -Head CT in ED--> 1.8 cm subdural hygroma and left occipital cephalehematoma -Recommend outpt neurology consult -CM/SW consult for SNF placement Electrolyte Abnormalities -Most likely 2/2 decreased intake -Hypokalemia 3.2 and Hyponatremia 130 --> 3.4 and 127 respectively -Ca 8.7 --> receiving calcium carbonate -IV 1/2 NS at 75 ml/hr -Monitor and supplement as needed Elevated BNP -No h/o heart failure, no pedal edema -Presented with Chest Pain in ED -BNP 1247 --> 1331; recheck with PCP; increased HCTZ -EKG--> mild ST elevation, prolonged QRS; ST elevation noted on ECG does not meet criteria for ischemia -Troponin negative -ECHO ordered--> EF 55-60% and otherwise normal -Monitor Resolved: Decreased Appetite -Risk factors: Confusion/Dementia -SETTLEMENT TECHNICIAN consult ordered to r/o difficulty swallowing --> NDD4 with thin liquids -Per family she is able to eat whole foods, will advance to regular diet --> she is tolerating regular diet during hospitalization Chronic: HTN Hypothyroidism with Goiter--> TSH normal range Alzheimer's Disease Frequent Falls Plan: Med Surg inpatient status She remains stable and continues to improve clinically Other orders as indicated above CM/SW for discharge planning--> Most likely D/C to [facility] on 02/01 Routine AM labs PT/OT DVT Prophylaxis: YAK[facility]IN [facility] Prophylaxis: Pepcid Ambulate with assistance Code Status: DNR/DNI; PCP: Dr. Vargas Hassan MD expected 02/01/18 to SNF, Rocephin for 48 hours then change to Keflex; keflex for 5 days at MD She has recovered quite well after being admitted for multiple falls and reopening of left sided head wound. Her UA in the ED showed a UTI. Culture came back with Escherichia coli. She received Rocephin inpatient and will be treated with Keflex for 5 days at discharge. She had low back pain therefore a lumbar spine xray was ordered and showed severe L3 compression fracture. Dr. Howe was consulted. He recommended an MRI be performed which family was agreeable to but family declined consult. Dr. Howe also recommended soft spine brace and she will be discharged with one. Her head wound was not bleeding or draining during admission. Continue wound care as needed. Labs showed hypokalemia, hyponatremia, and elevated BNP. Echo was performed and showed normal EF. BMP and BNP should be re-checked by primary care provider in 7-10 days. Her losartan/HCTZ was adjusted secondary to elevated blood pressure. Dose at discharge was losartan 50 mg BID and HCTZ 25 mg daily. PCP to reevalute this dosage at follow-up appointment. She was discharged on Keflex 500 mg BID x 5 days for completion of UTI treatment and probiotic daily x 12 days for gut health. With her falls and increased dementia, outpatient neurology consult was recommended. Due to her recent decline in health, progressive dementia, and increased falls at [place], family has decided to place patient in [facility] and she will be discharged there today. LYLE and I discussed with family end of life care/comfort measures; family will keep DNR/DNI at this time but they are aware that they will need to update new facility if they would like to change code status. - Patient Instructions Diet: Regular Diet as Tolerated (SETTLEMENT TECHNICIAN recommend oral intake regular solids (NDD4 ) and thin liquids) Activity: As Tolerated Driving: Do Not Drive Showering/Bathing: May Shower Wound/Incision Care: Keep Operative Site/Wound Site Clean and Dry Notify Provider of: Fever, Increased Pain, Drainage (from head wound ), Nausea and/or Vomiting - Discharge Plan Prescriptions/Med Rec: Cephalexin [Keflex] 500 mg PO Q12H 5 Days #10 cap Hydrochlorothiazide 25 mg PO DAILY 10 Days #10 tab Losartan [Cozaar] 50 mg PO BID 10 Days #20 tab Saccharomyces Boulardii [Florastor] 500 mg PO DAILY #12 cap Home Medications: Home Meds Levothyroxine [Synthroid] 50 mcg PO DAILY 10/04/17 [History] Calcium Carbonate 600 mg PO BIDMEALS 01/28/18 [History] Naproxen Sodium 220 mg PO Q12H PRN 01/28/18 [History] Carboxymethylcellulose Sodium [Refresh Tears] 1 drop EYEBOTH BID 01/29/18 [ History] Cephalexin [Keflex] 500 mg PO Q12H 5 Days #10 cap 02/01/18 [Rx] Hydrochlorothiazide 25 mg PO DAILY 10 Days #10 tab 02/01/18 [Rx] Losartan [Cozaar] 50 mg PO BID 10 Days #20 tab 02/01/18 [Rx] Saccharomyces Boulardii [Florastor] 500 mg PO DAILY #12 cap 02/01/18 [Rx] Patient Handouts: Fall Prevention in the Home, [id number], Urinary Tract Infection, Adult, [id number], Hypertension, [id number], Spinal Compression Fracture, Nonsutured Laceration Care Referrals: Vargas Hassan MD [Primary Care Provider] - - Discharge Summary/Plan Comment DC Time >30 min.: Yes (40 ) - General Info Date of Service: 02/01/18 Admission Dx/Problem (Free Text: fall Subjective Update: Patient is feeling better, and will be treated for a UTI with Rocephin; Keflex will be provided at DC. Functional Status: Reports: Pain Controlled, Tolerating Diet, Ambulating, Urinating - Review of Systems General: Reports: Weakness, Fatigue. Denies: Fever, Chills HEENT: Reports: No Symptoms Pulmonary: Reports: No Symptoms. Denies: Shortness of Breath Cardiovascular: Reports: No Symptoms Gastrointestinal: Reports: No Symptoms. Denies: Abdominal Pain, Decreased Appetite Genitourinary: Reports: Incontinence. Denies: Dysuria, Frequency, Burning, Pain , Urgency Musculoskeletal: Reports: No Symptoms. Denies: Back Pain Skin: Reports: No Symptoms Neurological: Reports: Confusion (h/o dementia; oriented to person only) Psychiatric: Reports: Confusion (h/o dementia; oriented to person only) - Patient Data Vitals - Most Recent: Last Vital Signs Temp 99.0 F 02/01/18 04:14 Pulse 73 02/01/18 04:14 Resp 16 02/01/18 04:14 BP 162/65 H 02/01/18 09:59 Pulse Ox 99 02/01/18 08:00 Orthostatic Blood Pressure [ 186/68 Standing] Orthostatic Blood Pressure [ 184/70 Sitting] Orthostatic Blood Pressure [ 184/62 Supine] Weight - Most Recent: 127 lb 1.6 oz I&O - Last 24 hours: Intake & Output 01/31/18 02/01/18 02/01/18 22:59 06:59 14:59 Intake Total 750 575 120 Output Total 525 750 Balance 225 -175 120 Lab Results - Last 24 hrs: Laboratory Results - last 24 hr 02/01/18 02/01/18 02/01/18 Range/Units 06:14 06:14 06:14 WBC 5.41 (3.98-10.04) K/mm3 RBC 3.63 L (3.98-5.22) M/mm3 Hgb 11.2 (11.2-15.7) gm/L Hct 33.5 L (34.1-44.9) % MCV 92.3 (79.4-94.8) fl MCH 30.9 (25.6-32.2) pg MCHC 33.4 (32.2-35.5) g/dl RDW Std Deviation 45.6 (36.4-46.3) fL Plt Count 355 (182-369) K/mm3 MPV 8.6 L (9.4-12.3) fl Neut % (Auto) 77.9 H (34.0-71.1) % Lymph % (Auto) 12.4 L (19.3-51.7) % [place] % (Auto) 8.5 (4.7-12.5) % Eos % (Auto) 0.6 L (0.7-5.8) Baso % (Auto) 0.4 (0.1-1.2) % Neut # (Auto) 4.22 (1.56-6.13) K/mm3 Lymph # (Auto) 0.67 L (1.18-3.74) K/mm3 [place] # (Auto) 0.46 H (0.24-0.36) K/mm3 Eos # (Auto) 0.03 L (0.04-0.36) K/mm3 Baso # (Auto) 0.02 (0.01-0.08) K/mm3 Sodium 127 L (136-145) mEq/L Potassium 3.4 L (3.5-5.1) mEq/L Chloride 93 L (98-107) mEq/L Carbon Dioxide 26 (21-32) mEq/L Anion Gap 11.4 (5-15) BUN 5 L (7-18) mg/dL Creatinine 0.6 (0.55-1.02) mg/dL Est Cr Clr Drug Dosing 60.27 mL/min Estimated GFR (MDRD) > 60 (>60) mL/min BUN/Creatinine Ratio 8.3 L (14-18) Glucose 117 H (83-115) mg/dL Calcium 8.7 (8.5-10.1) mg/dL Magnesium 1.9 (1.8-2.4) mg/dl NT-Pro-B Natriuret Pep 1331 H (0-450) pg/mL Med Orders - Current: Current Medications Acetaminophen (Tylenol) 650 mg PO Q4H PRN PRN Reason: Pain/Fever Last Admin: 01/31/18 19:51 Dose: 650 mg Artificial Tears (Isopto Tears 0.5% Ophth Soln) 0 ml EYEBOTH BID [facility] Last Admin: 02/01/18 09:33 Dose: 1 drop Bisacodyl (Dulcolax) 5 mg PO DAILY PRN PRN Reason: Constipation Calcium Carbonate/Glycine (Calcium Carbonate) 600 mg PO BIDMEALS [facility] Last Admin: 02/01/18 06:17 Dose: 600 mg Cephalexin (Keflex) 500 mg PO Q12H [facility] Last Admin: 02/01/18 09:30 Dose: 500 mg Docusate Sodium (Colace) 100 mg PO BID PRN PRN Reason: Constipation Donepezil HCl (Aricept) 5 mg PO DAILY [facility] Last Admin: 02/01/18 09:31 Dose: 5 mg Famotidine (Pepcid) 20 mg PO BID [facility] Last Admin: 02/01/18 09:30 Dose: 20 mg Hydralazine HCl (Apresoline) 20 mg IVPUSH Q6HR PRN PRN Reason: Hypertension Last Admin: 01/31/18 22:19 Dose: 20 mg Hydrochlorothiazide (Hydrochlorothiazide) 12.5 mg PO DAILY [facility] Last Admin: 02/01/18 09:30 Dose: 12.5 mg Hydromorphone HCl (Dilaudid) 0.25 mg IVPUSH Q2H PRN PRN Reason: Pain (severe 7-10) Promethazine HCl 6.25 mg/ (Sodium Chloride) 50.25 mls @ 100 mls/hr IV Q6H PRN PRN Reason: Nausea/Vomiting Levothyroxine Sodium (Synthroid) 50 mcg PO 0700 [facility] Last Admin: 02/01/18 06:17 Dose: 50 mcg Lorazepam (Ativan) 0.5 mg IVPUSH Q6H PRN PRN Reason: Anxiety Losartan Potassium (Cozaar) 50 mg PO BID [facility] Last Admin: 02/01/18 09:31 Dose: 50 mg Magnesium Hydroxide (Milk Of Magnesia) 30 ml PO Q12H PRN PRN Reason: Constipation Metoclopramide HCl (Reglan) 5 mg IVPUSH Q6H PRN PRN Reason: Nausea Last Admin: 01/30/18 12:02 Dose: 5 mg Naproxen (Naprosyn) 250 mg PO Q12H PRN PRN Reason: Pain Polyethylene Glycol (Miralax) 17 gm PO DAILY PRN PRN Reason: Constipation Promethazine HCl (Phenergan) 25 mg PO Q6H PRN PRN Reason: Nausea/Vomiting Saccharomyces Boulardii (Florastor) 500 mg PO DAILY [facility] Last Admin: 02/01/18 09:30 Dose: 500 mg Senna/Docusate Sodium (Senna Plus) 1 tab PO BID PRN PRN Reason: Constipation Sodium Chloride (Saline Flush) 10 ml FLUSH ASDIRECTED PRN PRN Reason: Keep Vein Open Last Admin: 01/31/18 08:35 Dose: 10 ml Temazepam (Restoril) 7.5 mg PO BEDTIME PRN PRN Reason: Insomnia Last Admin: 01/28/18 22:05 Dose: 7.5 mg Discontinued Medications Acetaminophen (Tylenol) 650 mg PO Q4H PRN PRN Reason: Pain (Mild 1-3)/fever Ceftriaxone Sodium (Rocephin) 1 gm IVPUSH ONETIME ONE Stop: 01/28/18 08:46 Last Admin: 01/28/18 12:45 Dose: Not Given Cephalexin (Keflex) 500 mg PO Q12H [facility] Last Admin: 01/30/18 12:29 Dose: Not Given Donepezil HCl (Aricept) 10 mg PO ONETIME ONE Stop: 01/29/18 15:38 Last Admin: 01/29/18 16:57 Dose: 10 mg Donepezil HCl (Aricept) 10 mg PO DAILY [facility] Last Admin: 01/31/18 08:25 Dose: 10 mg Famotidine (Pepcid) 20 mg IVPUSH BID [facility] Last Admin: 01/28/18 12:45 Dose: Not Given Sodium Chloride (Sodium Chloride 0.45%) 1,000 mls @ 75 mls/hr IV ASDIRECTED [facility] Last Admin: 01/30/18 08:39 Dose: 75 mls/hr Ceftriaxone Sodium 1 gm/ (Sodium Chloride) 100 mls @ 200 mls/hr IV DAILY [facility] Ceftriaxone Sodium 1 gm/ (Sodium Chloride) 100 mls @ 200 mls/hr IV DAILY [facility] Last Admin: 01/28/18 12:45 Dose: Not Given Potassium Chloride 10 meq/ (Premix) 100 mls @ 100 mls/hr IV Q1H [facility] Stop: 01/28/18 13:14 Last Admin: 01/28/18 15:14 Dose: Not Given Ceftriaxone Sodium 1 gm/ (Sodium Chloride) 100 mls @ 200 mls/hr IV Q24H [facility] Stop: 01/30/18 13:00 Last Admin: 01/30/18 12:02 Dose: 200 mls/hr Potassium Chloride 10 meq/ (Premix) 100 mls @ 100 mls/hr IV Q1H [facility] Stop: 01/28/18 17:14 Last Admin: 01/28/18 16:21 Dose: 100 mls/hr Levothyroxine Sodium (Synthroid) 50 mcg PO DAILY [facility] Last Admin: 01/30/18 08:01 Dose: Not Given Lidocaine/Epinephrine (Xylocaine 1% With Epinephrine 1:100,000) 20 ml INJECT ONETIME ONE Stop: 01/27/18 23:01 Last Admin: 01/27/18 23:09 Dose: 20 ml Losartan Potassium (Cozaar) 50 mg PO DAILY [facility] Last Admin: 01/31/18 08:25 Dose: 50 mg Losartan Potassium (Cozaar) 50 mg PO BID [facility] Oxycodone/Acetaminophen (Percocet 325-5 Mg) 0.5 tab PO Q4H PRN PRN Reason: Pain (moderate 4-6) Last Admin: 01/28/18 22:05 Dose: 0.5 tab Losartan/Hydrochlorothiazide 1 Tab 0 each PO DAILY [facility] Last Admin: 01/28/18 12:45 Dose: Not Given - Exam Quality Assessment: Reports: DVT Prophylaxis General: Reports: Alert, Oriented (oriented to person only; h/o dementia), Cooperative (difficult to follow commands), No Acute Distress HEENT: Reports: Pupils Equal, Pupils Reactive, EOMI, Mucous Membr. Moist/[place] Neck: Reports: Supple, Other (Left-sided goiter) Lungs: Reports: Clear to Auscultation, Normal Respiratory Effort Cardiovascular: Reports: Regular Rate, Regular Rhythm, Murmurs (systolic) GI/Abdominal Exam: Normal Bowel Sounds, Soft, Non-Tender, No Organomegaly, No Distention, No Abnormal Bruit, No Mass, Pelvis Stable (Female) Exam: Deferred Rectal (Female) Exam: Deferred Back Exam: Reports: Normal Inspection, Decreased Range of Motion Extremities: Normal Inspection, Normal Range of Motion, Non-Tender, No Pedal Edema, Normal Capillary Refill Skin: Reports: Warm, Dry, Intact, Other (2 cm laceration to left posterior scalp ; healing well) Wound/Incisions: Reports: Healing Well, No Drainage, Other (Left scalp laceration, healing well) Neurological: Reports: No New Focal Deficit, Cranial Nerves Intact (grossly) Psy/Mental Status: Reports: Alert, Normal Affect, Normal Mood
--- NOTE | 2018-02-02 09:25 | MR ---
MRI lumbar spine Technique: T1 and T2-weighted axial images were obtained from above L1 to inferiorly through the L5-S1 disc. T1, T2 and T2 fat-suppressed inversion recovery sagittal images were obtained. T2 fat-suppressed inversion recovery coronal images were obtained through the sacrum as well as T1 fat-suppressed axial images through the upper sacrum. Comparison: Prior lumbar spine x-ray of 01/28/18. Findings: T11-12: Posterior disc is preserved. No central canal stenosis or neural foraminal stenosis is seen. T12-L1: Slight circumferential disc bulge is seen. Mild disc bulging into the inferior neural foramina is noted. Mild degenerative endplate signal change is seen. Slight endplate concavity is seen at T12 which appear to be old. No central canal stenosis or neural foraminal stenosis is seen. L1-L2: Circumferential disc bulge is seen. Posterior disc maintains a concave margin. No central canal stenosis is seen. Asymmetric disc bulge is seen posterolaterally into the right neural foramen. Nerve roots appear to exit without compromise. No central canal stenosis is seen. Mild endplate concavities are seen of L1 which appear old. Degenerative endplate signal change is seen. L2-L3: Circumferential disc bulge is seen as well as posterior spurring. Slight thickening of the ligamentum flavum is seen. Mild central canal stenosis is noted. Disc bulging as well as degenerative spurring is noted into the left neural foramina. Nerve root appears to exit without compromise on both sides. Moderate degenerative apophyseal change is noted. Mild endplate concavities are seen of L2 which appear old. L3-L4: Mild spondylolisthesis seen by approximately 5-6 mm. Severe compression deformity is seen of L3 which shows mild bone marrow edema. Circumferential disc bulge is seen. Posterior disc maintains a mostly planar margin. Severe degenerative apophyseal change is noted. No central canal stenosis is seen. Neural foramina is narrowed on both sides but nerve roots appear to exit without definite compromise. L4-L5: Moderate disc space narrowing is seen. Spondylolisthesis is seen by about 7 mm. Circumferential disc bulge is noted. Severe degenerative apophyseal change is noted. No central canal stenosis is seen. Neural foramina is narrowed on both sides. Nerve roots exit without definite compromise. L5-S1: Circumferential disc bulge is seen. Mild posterior disc space narrowing is noted. No central canal stenosis is seen. Neural foramina are patent where the nerve roots exit. Sacrum: Fracture identified within the upper S2 sacral segment. Minimal offset is seen on the sagittal images. Bone marrow edema is identified. This is seen transversely across this vertebral segment and likely represents an insufficiency fracture. Conus medullaris and cauda equina show no abnormal signal or mass. Impression: 1. Compression deformity of L3 showing mild bone marrow edema which is felt to be fairly acute. 2. Findings of insufficiency fracture within the S2 sacral segment. Mild offset seen of the anterior cortex of the sacrum on the lateral view. 3. Diffuse degenerative change as noted above. Diagnostic code #3 I agree with preliminary report from [facility], finalized at 02/01/18, 2:35 PM Central Time
== END 2018-02-01 13:05 | DRG 552 ==
LOC: JD.ED 21:45 → UNDOADMOB 01-28 00:02 → JD.MS 01-28 00:02 → OBSVTOIN 01-28 11:17 → JD.MS 01-28 11:17 → INTOOBSV 01-28 11:17
PROVIDERS: ADMIT Internal Medicine Cardiovascular Disease; ATTEND Internal Medicine Cardiovascular Disease
DX: S32.030A Wedge compression fracture of third lumbar vertebra, initial encounter for closed fracture (principal); N30.00 Acute cystitis without hematuria; E87.1 Hypo-osmolality and hyponatremia; G30.9 Alzheimer's disease, unspecified; F02.80 Dementia in other diseases classified elsewhere, unspecified severity, without behavioral disturbance, psychotic disturbance, mood disturbance, and anxiety; R29.6 Repeated falls; I10 Essential (primary) hypertension; M54.5 Low back pain; E87.6 Hypokalemia; S01.01XA Laceration without foreign body of scalp, initial encounter; W18.30XA Fall on same level, unspecified, initial encounter; H54.7 Unspecified visual loss; M53.3 Sacrococcygeal disorders, not elsewhere classified; R79.89 Other specified abnormal findings of blood chemistry; F32.9 Major depressive disorder, single episode, unspecified; R07.9 Chest pain, unspecified; E03.9 Hypothyroidism, unspecified; E04.9 Nontoxic goiter, unspecified; D18.1 Lymphangioma, any site; Z79.899 Other long term (current) drug therapy; Z66 Do not resuscitate; B96.20 Unspecified Escherichia coli [E. coli] as the cause of diseases classified elsewhere
CPT/HCPCS: 12001; 36415 ×2; 70450; 72100; 80048; 80053; 81001; 83735; 83880; 84439; 84443; 84484 ×2; 85007; 85025; 85027; 86140; 87086; 87641; 93005; 93306; 99284; J0360; J7030; J7050; 72148; 72148-26; 87088; 87186; 92610-GN; 97110-GP; 97116-GP; 97162-GP; 97165-GO; 97530-GO; A9270-GY; J0696; J2765; J3480